=== PATIENT | male | born 1960 | race Caucasian/White ===

== ENCOUNTER 2016-06-05 14:42 | Inpatient (IN) | payer MEDICAID ==
[~2016-06-05] VITALS: Ht 182.9 cm; Wt 98.5 kg
[~2016-06-05 14:42] MED LIST: ATOR80TA PO; BENA20TA4 PO; GABA-339 PO; GEMF600T3 PO; HYDROCODON-ACETAMINOPHN PO; METO-158 PO; NAP500T PO
[2016-06-05] MEDS ORDERED: SODIUM CHLORIDE 0.9% 1,000 ML IV ONE ×3 (15:31→18:15)
[2016-06-05] MEDS ORDERED: MORPHINE SULFATE 4 MG/ML SYRG IV ONE (15:45)
[2016-06-05] MEDS ORDERED: ONDANSETRON HCL 4 MG/2 ML VIAL IV ONE (15:45)
[2016-06-05] MEDS ORDERED: DEXTROSE (50%) 50ML SYRG IV ONE (15:45)
[2016-06-05 15:58] LABS: DEFINITIVE VIEW TRANSMISSION; Hemoglobin 14.6 g/dL (13.5-17.5); Mean Corpuscular Hemoglobin 28.4 pg (28.0-32.0); SUSPECT VIEW TRANSMISSION
[2016-06-05 16:03] LABS: Hematocrit 47.1 % (41.0-53.0); Mean Corpuscular Hgb Conc. 30.9 g/dL (32.0-36.0); Mean Corpuscular Volume 91.8 fL (80.0-100.0); Platelet Count (auto) 323 10^3/uL (140-450); Red Cell Distribution Width 15.8 % (11.6-16.0); White Blood Cell 18.3 10^3/uL (4.4-10.8)
[2016-06-05 16:18] LABS: Albumin 3.1 g/dL (3.4-5.0); Anion Gap 22 (5-15); Blood Urea Nitrogen 49 mg/dL (7-18); Calcium 8.1 mg/dL (8.5-10.1); Carbon Dioxide 10 mmol/L (21-32); Chloride 104 mmol/L (98-107); Sodium 136 mmol/L (136-145)
[2016-06-05 16:19] LABS: Partial Thromboplastin Time 35.2 sec (22.64-33.71)
[2016-06-05 16:21] LABS: Alkaline Phosphatase 61 U/L (45-117); Aspartate Aminotransferase 68 U/L (15-37); BUN/Creatinine Ratio 13.4; Bilirubin, Total < 0.1 mg/dL (0.2-1.0); GFR African American 22 mL/min; GFR Non-African American 18 mL/min; Total Protein 7.1 g/dL (6.4-8.2)
[2016-06-05 16:25] LABS: Metamyelocytes % 0; Myelocytes % 0; Promyelocytes % 0; Reactive Lymphocytes 0
[2016-06-05 16:26] LABS: INR 1.39 (0.9-1.15); Prothrombin Time 14.3 sec (9.37-12.3)
[2016-06-05 16:28] LABS: Glucose 31 mg/dL (74-106)
[2016-06-05 16:41] LABS: B-Type Natriuretic Peptide 150.91 pg/mL (0-100); Temperature: 23.5 C (20.0-25.0)
[2016-06-05] MEDS ORDERED: SODIUM CHLORIDE 0.9% 250 ML IV ONE (17:31)
[2016-06-05] MEDS ORDERED: PIPERACILLIN-TAZOB 3.375GM 100 ML IV ONE ×2 (17:45→20:30)
[2016-06-05 17:51] LABS: Amylase 47 U/L (25-115)
[2016-06-05] MEDS ORDERED: ASPirin 325 MG TAB PO ONE (18:00)
[2016-06-05] MEDS ORDERED: ENOXAPARIN SOD 100 MG/1 ML SYRINGE SC ONE (18:00)
[2016-06-05] MEDS ORDERED: DEXTROSE (50%) 50ML SYRG IV PRN (18:15)
[2016-06-05] MEDS ORDERED: ACETAMINOPHEN 500 MG TAB PO PRN (18:15)
[2016-06-05] MEDS ORDERED: MORPHINE SULF INJ 2 MG/ML SYRINGE 1ML IV PRN (18:15)
[2016-06-05] MEDS ORDERED: TEMAZEPAM 15 MG CAP PO PRN (18:15)
[2016-06-05] MEDS ORDERED: FUROSEMIDE 20 MG/2 ML VIAL IV ONE (18:15)
[2016-06-05] MEDS ORDERED: PROMETHAZINE HCL 25 MG/ML 1ML IV PRN (18:15)
[2016-06-05] MEDS ORDERED: LORazepam 0.5 MG TAB PO PRN (18:15)
[2016-06-05] MEDS ORDERED: LACTULOSE 20Gm/30ML SOLN PO PRN (18:15)
[2016-06-05] MEDS ORDERED: cefTRIAXone 1GM/50ML D5W 50 ML IV ONE (18:15)
[2016-06-05] MEDS ORDERED: NITROGLYCERIN 0.4 MG SL TAB SL PRN (18:15)
[2016-06-05 19:05] LABS: Giant Platelets Few; Platelet Estimate Adequate
[2016-06-05 19:18] LABS: Lactic Acid 6.6 mmol/L (0.4-2.0)
[2016-06-05] MEDS: D5W/SOD CHLO 0.9% 1,000 ML IV SCH (19:34)
[2016-06-05 19:49] LABS: REFLEX LACTIC ACID YES OR NO YES
[2016-06-05] MEDS: ACCU-CHEK COMFORT CURVE STRIP VI SCH ×2 (20:08→22:09)
[2016-06-05] MEDS ORDERED: DILTIAZEM HCL 25 MG/5 ML VIAL IV ONE ×2 (21:15→23:53)
[2016-06-05 21:24] LABS: Urine Bilirubin Negative (Negative); Urine Color Yellow (Yellow); Urine Glucose Normal (Normal); Urine Ketone Negative (Negative); Urine Mucus FEW (None Seen); Urine Nitrite Negative (Negative); Urine RBC 4 /hpf (0 - 3); Urine Urobilinogen Normal (Negative)
[2016-06-05 21:26] LABS: Urine Blood 1+ /uL (Negative)
[2016-06-05] MEDS ORDERED: diphenhdrAMINE HCL 50 MG/1 ML VL IV ONE (22:00)
[2016-06-05 22:05] LABS: Lactic Acid 4.8 mmol/L (0.4-2.0)
[2016-06-05 22:38] LABS: REFLEX LACTIC ACID YES OR NO YES
[2016-06-05 22:40] VITALS: BP 125/96
[2016-06-05] MEDS ORDERED: cloNIDine HCL 0.1 MG TAB ONE (23:10)
[2016-06-05] MEDS ORDERED: ACETAMINOPHEN 650 mg PER 20 mL UD ONE (23:10)
[2016-06-05] MEDS ORDERED: ACETAMINOPHEN 650 mg PER 20 mL UD PO PRN (23:15)
[2016-06-05] MEDS ORDERED: ACETAMINOPHEN 650 MG RECT SUPP PR ONE (23:18)
[2016-06-05 23:40] VITALS: BP 150/86
[2016-06-05] MEDS ORDERED: SODIUM BICARBONATE 8.4% INJ 50ML SYRINGE ONE (23:52)
[2016-06-06] VITALS (70 sets, daily range): BP systolic 94–155; BP diastolic 57–106
[2016-06-06] MEDS ORDERED: ACETAMINOPHEN 650 MG RECT SUPP PR PRN ×2 (00:15)
[2016-06-06] MEDS ORDERED: SODIUM BICARBONATE 8.4 % INJ 50ML VIAL IV ONE (00:15)
[2016-06-06] MEDS ORDERED: DILTIAZEM HCL 25 MG/5 ML VIAL IV ONE (00:15)
[2016-06-06] MEDS: MORPHINE SULF INJ 2 MG/ML SYRINGE 1ML IV PRN ×5 (01:37→22:16)
[2016-06-06] MEDS: ACCU-CHEK COMFORT CURVE STRIP VI SCH ×12 (02:04→22:15)
[2016-06-06] MEDS: D5W/SOD CHLO 0.9% 1,000 ML IV SCH (05:45)
[2016-06-06] MEDS: PIPERACILLIN-TAZOB 2.25GM 50 ML IV SCH ×2 (05:48)
[2016-06-06 07:27] LABS: DEFINITIVE VIEW TRANSMISSION; Hematocrit 41.8 % (41.0-53.0); Hemoglobin 13.4 g/dL (13.5-17.5); Mean Corpuscular Hemoglobin 28.8 pg (28.0-32.0); Mean Corpuscular Hgb Conc. 32.1 g/dL (32.0-36.0); Mean Corpuscular Volume 89.8 fL (80.0-100.0); Mean Platelet Volume 10.2 fL (7.4-10.4); Platelet Count (auto) 213 10^3/uL (140-450); Red Cell Distribution Width 15.6 % (11.6-16.0); SUSPECT VIEW TRANSMISSION
[2016-06-06 07:42] LABS: White Blood Cell 38.5 10^3/uL (4.4-10.8)
[2016-06-06 07:43] LABS: Partial Thromboplastin Time 46.2 sec (22.64-33.71)
[2016-06-06 07:47] LABS: Metamyelocytes % 0; Myelocytes % 0; Promyelocytes % 0; Reactive Lymphocytes 0
[2016-06-06 08:02] LABS: Albumin 2.6 g/dL (3.4-5.0); BUN/Creatinine Ratio 23.4; Calcium 6.9 mg/dL (8.5-10.1); Potassium 3.5 mmol/L (3.5-5.1)
[2016-06-06 08:04] LABS: Bilirubin, Total 0.6 mg/dL (0.2-1.0); Total Protein 6.2 g/dL (6.4-8.2)
[2016-06-06 08:10] LABS: INR 1.69 (0.9-1.15); Prothrombin Time 17.4 sec (9.37-12.3)
[2016-06-06] MEDS ORDERED: cefTRIAXone 1GM/50ML D5W 50 ML IV SCH (09:00)
[2016-06-06] MEDS ORDERED: PANTOPRAZOLE SODIUM 40 MG/10 ML VIAL IV ONE (10:00)
[2016-06-06] MEDS: PANTOPRAZOLE 40 MG TAB PO SCH (10:00)
[2016-06-06] MEDS: SOD CHL 0.45% WITH 20MEQ KCL 1,000 ML IV SCH ×2 (10:22→20:15)
[2016-06-06] MEDS: ENOXAPARIN SOD 30 MG/0.3 ML SYRINGE SC SCH (10:23)
[2016-06-06] MEDS: ALBUMIN 25% 100 ML IV SCH ×2 (10:30→18:41)
[2016-06-06] MEDS: ASPirin 81 mg TAB PO SCH (10:40)
[2016-06-06 10:46] LABS: Urine Mucus FEW (None Seen); Urine RBC 1 /hpf (0 - 3); Urine Squamous Epithelial Cell FEW /hpf (<5)
[2016-06-06] MEDS ORDERED: LEVOFLOXACIN 500MG 100 ML IV ONE (11:15)
[2016-06-06] MEDS ORDERED: VANCOMYCIN PER PHARMACY 0 MG IV SCH (11:15)
[2016-06-06] MEDS ORDERED: VANCOMYCIN 1GM/250ML D5W 250 ML IV ONE (11:15)
[2016-06-06 11:45] LABS: Giant Platelets Few; Platelet Estimate Adequate
[2016-06-06] MEDS ORDERED: PHYTONADIONE ORAL Susp 10 mg/10ml PO ONE (11:45)
[2016-06-06] MEDS: METOPROLOL TARTRATE 25 MG TAB PO SCH ×2 (12:18→21:04)
[2016-06-06] MEDS ORDERED: VANCOMYCIN 1,500 MG in D5W 5% 250 ML IV SCH (13:00)
[2016-06-06 18:43] LABS: DEFINITIVE VIEW TRANSMISSION; Hemoglobin 13.8 g/dL (13.5-17.5); Mean Corpuscular Hgb Conc. 32.1 g/dL (32.0-36.0); Mean Corpuscular Volume 90.3 fL (80.0-100.0); Mean Platelet Volume 10.3 fL (7.4-10.4); Platelet Count (auto) 194 10^3/uL (140-450); Red Cell Distribution Width 16.1 % (11.6-16.0); SUSPECT VIEW TRANSMISSION
[2016-06-06 18:53] LABS: Partial Thromboplastin Time 41.7 sec (22.64-33.71)
[2016-06-06 19:03] LABS: INR 1.44 (0.9-1.15); Prothrombin Time 14.8 sec (9.37-12.3)
[2016-06-06 19:04] LABS: Albumin 2.8 g/dL (3.4-5.0); BUN/Creatinine Ratio 32.3; Calcium 7.2 mg/dL (8.5-10.1); Magnesium 1.9 mg/dL (1.6-2.6); Potassium 4.2 mmol/L (3.5-5.1)
[2016-06-06 19:14] LABS: Bilirubin, Total 0.6 mg/dL (0.2-1.0); Total Protein 6.5 g/dL (6.4-8.2)
[2016-06-06 20:03] LABS: Bilirubin, Direct 0.3 mg/dL (0-0.2)
[2016-06-06 20:08] LABS: White Blood Cell 39.2 10^3/uL (4.4-10.8)
[2016-06-06 20:09] LABS: Myelocytes % 0; Promyelocytes % 0; Reactive Lymphocytes 0
[2016-06-06 20:46] LABS: Metamyelocytes % 2
[2016-06-06 20:49] LABS: Burr Cells MODERATE; Giant Platelets Few; Platelet Estimate Adequate
[2016-06-06] MEDS: HYDROcodone-ACET 5/325MG TAB PO PRN (21:03)
[2016-06-07] VITALS (18 sets, daily range): BP systolic 108–157; BP diastolic 65–108
[2016-06-07] MEDS: ACCU-CHEK COMFORT CURVE STRIP VI SCH ×9 (00:38→22:00)
[2016-06-07] MEDS: ACETAMINOPHEN 500 MG TAB PO PRN (02:14)
[2016-06-07] MEDS: ALBUMIN 25% 100 ML IV SCH ×2 (02:15→11:00)
[2016-06-07] MEDS: SOD CHL 0.45% WITH 20MEQ KCL 1,000 ML IV SCH ×3 (06:26→22:39)
[2016-06-07 06:52] LABS: Partial Thromboplastin Time 36.5 sec (22.64-33.71)
[2016-06-07 06:59] LABS: Albumin 3.2 g/dL (3.4-5.0); BUN/Creatinine Ratio 41.9; Calcium 7.5 mg/dL (8.5-10.1); Potassium 3.8 mmol/L (3.5-5.1)
[2016-06-07 07:02] LABS: Bilirubin, Total 0.7 mg/dL (0.2-1.0); Phosphorus 1.3 mg/dL (2.5-4.90); Total Protein 6.6 g/dL (6.4-8.2)
[2016-06-07 07:06] LABS: DEFINITIVE VIEW TRANSMISSION; Hematocrit 38.8 % (41.0-53.0); Hemoglobin 12.5 g/dL (13.5-17.5); Mean Corpuscular Hemoglobin 28.9 pg (28.0-32.0); Mean Corpuscular Hgb Conc. 32.1 g/dL (32.0-36.0); Mean Corpuscular Volume 90.1 fL (80.0-100.0); Mean Platelet Volume 11.5 fL (7.4-10.4); Platelet Count (auto) 153 10^3/uL (140-450); Red Cell Distribution Width 15.7 % (11.6-16.0); SUSPECT VIEW TRANSMISSION
[2016-06-07 07:11] LABS: Metamyelocytes % 0; Myelocytes % 0; Promyelocytes % 0; Reactive Lymphocytes 0; White Blood Cell 36.1 10^3/uL (4.4-10.8)
[2016-06-07 07:23] LABS: INR 1.22 (0.9-1.15); Prothrombin Time 12.6 sec (9.37-12.3)
[2016-06-07 07:32] LABS: Bilirubin, Direct 0.3 mg/dL (0-0.2)
[2016-06-07] MEDS: HYDROcodone-ACET 5/325MG TAB PO PRN ×2 (08:40→18:07)
[2016-06-07 09:52] LABS: Burr Cells FEW; Giant Platelets Few; Platelet Estimate Adequate
[2016-06-07] MEDS: ENOXAPARIN SOD 30 MG/0.3 ML SYRINGE SC SCH (10:58)
[2016-06-07] MEDS: ASPirin 81 mg TAB PO SCH (10:58)
[2016-06-07] MEDS: PANTOPRAZOLE 40 MG TAB PO SCH (10:58)
[2016-06-07] MEDS: LEVOFLOXACIN 250MG 50 ML IV SCH (10:59)
[2016-06-07] MEDS: METOPROLOL TARTRATE 25 MG TAB PO SCH ×2 (10:59→22:35)
[2016-06-07] MEDS ORDERED: POTASSIUM PHOSPHATE 44 MEQ in SODIUM CHL 0.9% 250 ML IV ONE (11:15)
[2016-06-07] MEDS: MORPHINE SULF INJ 2 MG/ML SYRINGE 1ML IV PRN ×3 (11:19→21:06)
[2016-06-07] MEDS ORDERED: PHYTONADIONE ORAL Susp 10 mg/10ml PO ONE (12:15)
[2016-06-07] MEDS ORDERED: METOPROLOL TARTRATE 25 MG TAB PO ONE (12:15)
[2016-06-07] MEDS ORDERED: DEXTROSE (50%) 50ML SYRG IV PRN (13:45)
[2016-06-07] MEDS: VANCOMYCIN 1,250 MG in D5W 5% 250 ML IV SCH ×2 (13:57→22:35)
[2016-06-07] MEDS: InsuLIN REG 1unit/0.01ml Soln (100units/ml) SC SCH ×2 (17:00→22:00)
[2016-06-07 17:59] LABS: Partial Thromboplastin Time 35.3 sec (22.64-33.71); Prothrombin Time 11.9 sec (9.37-12.3)
[2016-06-07 18:07] LABS: INR 1.16 (0.9-1.15)
[2016-06-07 18:29] LABS: DEFINITIVE VIEW TRANSMISSION; Hemoglobin 12.4 g/dL (13.5-17.5); SUSPECT VIEW TRANSMISSION
[2016-06-07 18:43] LABS: Hematocrit 39.1 % (41.0-53.0); Mean Corpuscular Hgb Conc. 31.6 g/dL (32.0-36.0); Mean Corpuscular Volume 91.8 fL (80.0-100.0); Red Cell Distribution Width 16.2 % (11.6-16.0)
[2016-06-07 18:46] LABS: Albumin 3.1 g/dL (3.4-5.0); Calcium 7.4 mg/dL (8.5-10.1); Potassium 4.2 mmol/L (3.5-5.1); White Blood Cell 37.6 10^3/uL (4.4-10.8)
[2016-06-07 18:48] LABS: Metamyelocytes % 0; Myelocytes % 0; Promyelocytes % 0; Reactive Lymphocytes 0
[2016-06-07 18:50] LABS: BUN/Creatinine Ratio 40.7; Magnesium 2.4 mg/dL (1.6-2.6)
[2016-06-07 18:59] LABS: Bilirubin, Total 0.6 mg/dL (0.2-1.0); Phosphorus 1.6 mg/dL (2.5-4.90); Total Protein 6.7 g/dL (6.4-8.2)
[2016-06-07 19:03] LABS: Bilirubin, Direct 0.3 mg/dL (0-0.2)
[2016-06-07 19:31] LABS: Giant Platelets Few; Large Platelets FEW; Platelet Estimate Decreased
[2016-06-07 19:32] LABS: Burr Cells MODERATE
[2016-06-07 19:33] LABS: Mean Platelet Volume 12.4 fL (7.4-10.4); Platelet Count (auto) 139 10^3/uL (140-450)
[2016-06-08] VITALS: BP 148/105
[2016-06-08] MEDS: MORPHINE SULF INJ 2 MG/ML SYRINGE 1ML IV PRN ×6 (01:53→23:13)
[2016-06-08] MEDS: HYDROcodone-ACET 5/325MG TAB PO PRN ×2 (03:32→19:41)
[2016-06-08 04:00] VITALS: BP 155/93
[2016-06-08 05:10] LABS: DEFINITIVE VIEW TRANSMISSION; Hematocrit 40.1 % (41.0-53.0); Hemoglobin 12.6 g/dL (13.5-17.5); Mean Corpuscular Hemoglobin 28.5 pg (28.0-32.0); Mean Corpuscular Hgb Conc. 31.5 g/dL (32.0-36.0); Mean Corpuscular Volume 90.5 fL (80.0-100.0); Mean Platelet Volume 12.1 fL (7.4-10.4); Platelet Count (auto) 145 10^3/uL (140-450); Red Cell Distribution Width 15.9 % (11.6-16.0); SUSPECT VIEW TRANSMISSION
[2016-06-08 05:29] LABS: White Blood Cell 44.1 10^3/uL (4.4-10.8)
[2016-06-08 05:30] LABS: Metamyelocytes % 0; Myelocytes % 0; Promyelocytes % 0; Reactive Lymphocytes 0
[2016-06-08 05:32] LABS: Albumin 3.1 g/dL (3.4-5.0); BUN/Creatinine Ratio 42.1; Bilirubin, Total 0.9 mg/dL (0.2-1.0); Calcium 7.9 mg/dL (8.5-10.1); Magnesium 2.5 mg/dL (1.6-2.6); Potassium 3.6 mmol/L (3.5-5.1); Total Protein 6.9 g/dL (6.4-8.2)
[2016-06-08 05:39] LABS: Bilirubin, Direct 0.4 mg/dL (0-0.2)
[2016-06-08 05:50] LABS: INR 1.09 (0.9-1.15); Partial Thromboplastin Time 30.8 sec (22.64-33.71); Prothrombin Time 11.2 sec (9.37-12.3)
[2016-06-08 05:53] LABS: Burr Cells FEW; Hypersegmented Neutrophils Present; Platelet Estimate Adequate
[2016-06-08] MEDS: VANCOMYCIN 1,250 MG in D5W 5% 250 ML IV SCH ×3 (06:19→23:01)
[2016-06-08] MEDS: InsuLIN REG 1unit/0.01ml Soln (100units/ml) SC SCH ×4 (06:26→22:00)
[2016-06-08] MEDS: ACCU-CHEK COMFORT CURVE STRIP VI SCH ×4 (06:26→22:00)
[2016-06-08 08:00] VITALS: BP 142/94
[2016-06-08] MEDS: METOPROLOL TARTRATE 25 MG TAB PO SCH ×2 (10:11→23:02)
[2016-06-08] MEDS: PANTOPRAZOLE 40 MG TAB PO SCH (10:11)
[2016-06-08] MEDS: ACETAMINOPHEN 500 MG TAB PO PRN (10:12)
[2016-06-08] MEDS: ENOXAPARIN SOD 30 MG/0.3 ML SYRINGE SC SCH (10:12)
[2016-06-08] MEDS: ASPirin 81 mg TAB PO SCH (10:12)
[2016-06-08] MEDS: LEVOFLOXACIN 250MG 50 ML IV SCH (10:12)
[2016-06-08 11:56] VITALS: BP 138/75
[2016-06-08] MEDS: SOD CHL 0.45% WITH 20MEQ KCL 1,000 ML IV SCH ×2 (12:00→20:53)
[2016-06-08] MEDS ORDERED: IOHEXOL 350 MG/ML 100ML IJ ONE (13:38)
[2016-06-08] MEDS ORDERED: EPINEPHrine HCL 1 MG/10 ML SYRG ONE (14:03)
[2016-06-08 14:13] LABS: B-Type Natriuretic Peptide 516.12 pg/mL (0-100); Temperature: 22.5 C (20.0-25.0)
[2016-06-08 16:03] VITALS: BP 135/84
[2016-06-08 19:05] LABS: DEFINITIVE VIEW TRANSMISSION; Hemoglobin 13.2 g/dL (13.5-17.5); Mean Corpuscular Hemoglobin 29.1 pg (28.0-32.0); Mean Corpuscular Hgb Conc. 32.3 g/dL (32.0-36.0); Mean Platelet Volume 13.1 fL (7.4-10.4); Platelet Count (auto) 137 10^3/uL (140-450); Red Cell Distribution Width 15.9 % (11.6-16.0); SUSPECT VIEW TRANSMISSION
[2016-06-08 19:17] LABS: BUN/Creatinine Ratio 41.8; Bilirubin, Total 1.1 mg/dL (0.2-1.0); Calcium 8.3 mg/dL (8.5-10.1); Magnesium 2.5 mg/dL (1.6-2.6); Potassium 3.6 mmol/L (3.5-5.1); Total Protein 7.1 g/dL (6.4-8.2)
[2016-06-08 19:20] LABS: INR 1.1 (0.9-1.15); Partial Thromboplastin Time 30.6 sec (22.64-33.71); Prothrombin Time 11.3 sec (9.37-12.3)
[2016-06-08 19:27] LABS: Bilirubin, Direct 0.5 mg/dL (0-0.2)
[2016-06-08 19:28] LABS: White Blood Cell 46.1 10^3/uL (4.4-10.8)
[2016-06-08 19:29] LABS: Promyelocytes % 0; Reactive Lymphocytes 0
[2016-06-08 19:52] LABS: Urine Bilirubin Negative (Negative); Urine Blood TRACE /uL (Negative); Urine Color Yellow (Yellow); Urine Glucose Normal (Normal); Urine Ketone TRACE (Negative); Urine Nitrite Negative (Negative); Urine RBC 1 /hpf (0 - 3); Urine Squamous Epithelial Cell FEW /hpf (<5); Urine Urobilinogen Normal (Negative); Urine pH 6.5 (5.0-8.0)
[2016-06-08 20:00] VITALS: BP 163/100
[2016-06-08 20:03] LABS: Burr Cells FEW; Giant Platelets Few; Hypersegmented Neutrophils Present; Metamyelocytes % 1; Myelocytes % 1; Platelet Estimate Decreased
[2016-06-09] VITALS (7 sets, daily range): BP systolic 122–167; BP diastolic 83–112
[2016-06-09] MEDS: HYDROcodone-ACET 5/325MG TAB PO PRN ×3 (02:03→21:39)
[2016-06-09] MEDS: cloNIDine HCL 0.1 MG TAB PO PRN ×2 (02:13→11:38)
[2016-06-09 05:12] LABS: INR 1.12 (0.9-1.15); Partial Thromboplastin Time 29.4 sec (22.64-33.71); Prothrombin Time 11.5 sec (9.37-12.3)
[2016-06-09 05:13] LABS: DEFINITIVE VIEW TRANSMISSION; Hematocrit 38.4 % (41.0-53.0); Hemoglobin 12.3 g/dL (13.5-17.5); Mean Corpuscular Hemoglobin 28.7 pg (28.0-32.0); Mean Corpuscular Hgb Conc. 32.1 g/dL (32.0-36.0); Mean Corpuscular Volume 89.5 fL (80.0-100.0); Mean Platelet Volume 12.6 fL (7.4-10.4); Platelet Count (auto) 151 10^3/uL (140-450); Red Cell Distribution Width 15.7 % (11.6-16.0); SUSPECT VIEW TRANSMISSION
[2016-06-09 05:38] LABS: White Blood Cell 40.4 10^3/uL (4.4-10.8)
[2016-06-09 05:39] LABS: Promyelocytes % 0; Reactive Lymphocytes 0
[2016-06-09 06:12] LABS: Hypersegmented Neutrophils Present; Metamyelocytes % 2; Myelocytes % 2; Platelet Estimate Adequate
[2016-06-09 06:13] LABS: RBC Morphology Normal
[2016-06-09 06:20] LABS: Albumin 2.7 g/dL (3.4-5.0); BUN/Creatinine Ratio 33.3; Bilirubin, Total 1.3 mg/dL (0.2-1.0); Calcium 8.2 mg/dL (8.5-10.1); Magnesium 2.2 mg/dL (1.6-2.6); Potassium 3.8 mmol/L (3.5-5.1); Total Protein 6.7 g/dL (6.4-8.2)
[2016-06-09 06:23] LABS: Bilirubin, Direct 0.6 mg/dL (0-0.2)
[2016-06-09] MEDS: VANCOMYCIN 1,250 MG in D5W 5% 250 ML IV SCH ×3 (06:30→21:07)
[2016-06-09] MEDS: ACCU-CHEK COMFORT CURVE STRIP VI SCH ×4 (06:31→21:45)
[2016-06-09] MEDS: InsuLIN REG 1unit/0.01ml Soln (100units/ml) SC SCH ×4 (06:31→21:45)
[2016-06-09] MEDS: MORPHINE SULF INJ 2 MG/ML SYRINGE 1ML IV PRN ×3 (06:31→18:05)
[2016-06-09] MEDS: PANTOPRAZOLE 40 MG TAB PO SCH (10:16)
[2016-06-09] MEDS: ASPirin 81 mg TAB PO SCH (10:16)
[2016-06-09] MEDS: LEVOFLOXACIN 250MG 50 ML IV SCH (10:16)
[2016-06-09] MEDS: ENOXAPARIN SOD 30 MG/0.3 ML SYRINGE SC SCH (10:16)
[2016-06-09] MEDS: METOPROLOL TARTRATE 25 MG TAB PO SCH ×2 (10:16→21:07)
[2016-06-10] VITALS: BP 146/94
[2016-06-10] MEDS: MORPHINE SULF INJ 2 MG/ML SYRINGE 1ML IV PRN ×3 (02:40→17:12)
[2016-06-10 04:00] VITALS: BP 196/74
[2016-06-10] MEDS: ACETAMINOPHEN 500 MG TAB PO PRN (04:47)
[2016-06-10] MEDS: cloNIDine HCL 0.1 MG TAB PO PRN (04:51)
[2016-06-10] MEDS: VANCOMYCIN 1,250 MG in D5W 5% 250 ML IV SCH ×2 (06:25→13:29)
[2016-06-10] MEDS: ALBUTEROL SULF 2.5 MG/0.5ML(0.5%) NEB SOLN NEB PRN ×2 (06:27→11:59)
[2016-06-10] MEDS: IPRATROPIUM BROM 0.5 MG/2.5ML INH SOL NEB PRN ×2 (06:28→11:59)
[2016-06-10] MEDS: ACCU-CHEK COMFORT CURVE STRIP VI SCH ×2 (06:31→11:42)
[2016-06-10] MEDS: InsuLIN REG 1unit/0.01ml Soln (100units/ml) SC SCH ×2 (06:32→12:07)
[2016-06-10 06:42] LABS: DEFINITIVE VIEW TRANSMISSION; Hematocrit 36.9 % (41.0-53.0); Hemoglobin 11.7 g/dL (13.5-17.5); Mean Corpuscular Hemoglobin 28.5 pg (28.0-32.0); Mean Corpuscular Hgb Conc. 31.8 g/dL (32.0-36.0); Mean Corpuscular Volume 89.8 fL (80.0-100.0); Mean Platelet Volume 13.4 fL (7.4-10.4); Platelet Count (auto) 201 10^3/uL (140-450); Red Cell Distribution Width 15.3 % (11.6-16.0); SUSPECT VIEW TRANSMISSION
[2016-06-10 07:05] LABS: Vitamin D 25-Hydroxy 11 ng/mL (.); Vitamin D-2 25-Hydroxy <1.0 ng/mL (.)
[2016-06-10 07:20] LABS: White Blood Cell 37.6 10^3/uL (4.4-10.8)
[2016-06-10 07:21] LABS: Promyelocytes % 0; Reactive Lymphocytes 0
[2016-06-10 07:43] LABS: INR 1.14 (0.9-1.15); Partial Thromboplastin Time 29.6 sec (22.64-33.71); Prothrombin Time 11.7 sec (9.37-12.3)
[2016-06-10 08:00] VITALS: BP 150/92
[2016-06-10 08:22] LABS: Metamyelocytes % 3; Myelocytes % 2
[2016-06-10 08:23] LABS: Hypersegmented Neutrophils Present; Platelet Estimate Adequate
[2016-06-10 08:30] LABS: BUN/Creatinine Ratio 28.2; Calcium 8.1 mg/dL (8.5-10.1)
[2016-06-10] MEDS: HYDROcodone-ACET 5/325MG TAB PO PRN ×2 (08:33→15:36)
[2016-06-10 08:51] LABS: Potassium 2.9 mmol/L (3.5-5.1)
[2016-06-10] MEDS: METOPROLOL TARTRATE 25 MG TAB PO SCH (09:40)
[2016-06-10] MEDS: LEVOFLOXACIN 250MG 50 ML IV SCH (09:40)
[2016-06-10] MEDS: ASPirin 81 mg TAB PO SCH (09:40)
[2016-06-10] MEDS: ENOXAPARIN SOD 30 MG/0.3 ML SYRINGE SC SCH (09:41)
[2016-06-10] MEDS: PANTOPRAZOLE 40 MG TAB PO SCH (09:41)
[2016-06-10] MEDS ORDERED: POTASSIUM CHL 10% (20 MEQ/15ML) ORAL SOLN PO ONE (11:30)
[2016-06-10] MEDS: POTASSIUM CHL 20MEQ/100ML 100 ML IV SCH ×2 (11:51→13:13)
[2016-06-10 12:00] VITALS: BP 153/92
[2016-06-10] MEDS ORDERED: LEVOFLOXACIN 250 MG TAB PO ONE (15:30)
[2016-06-10 16:00] VITALS: BP 138/85
[2016-06-10 16:38] VITALS: BP 138/85
== END 2016-06-10 17:30 | DRG 720 ==
LOC: ER 14:45 → TELE 14:46 → ICU WEST 22:50 → DOU IN ICU 06-07 16:21
PROVIDERS: ADMIT Internal Medicine; ATTEND Internal Medicine
DX: A40.3 Sepsis due to Streptococcus pneumoniae (principal); N17.9 Acute kidney failure, unspecified; D68.9 Coagulation defect, unspecified; G92 Toxic encephalopathy; J15.4 Pneumonia due to other streptococci; L53.0 Toxic erythema; E11.22 Type 2 diabetes mellitus with diabetic chronic kidney disease; E11.649 Type 2 diabetes mellitus with hypoglycemia without coma; E83.39 Other disorders of phosphorus metabolism; I12.9 Hypertensive chronic kidney disease with stage 1 through stage 4 chronic kidney disease, or unspecified chronic kidney disease; N12 Tubulo-interstitial nephritis, not specified as acute or chronic; R53.81 Other malaise; E78.5 Hyperlipidemia, unspecified; D72.823 Leukemoid reaction; M19.90 Unspecified osteoarthritis, unspecified site; R09.02 Hypoxemia; N18.9 Chronic kidney disease, unspecified; R29.700 NIHSS score 0; E86.0 Dehydration; F41.9 Anxiety disorder, unspecified; G89.29 Other chronic pain; K57.90 Diverticulosis of intestine, part unspecified, without perforation or abscess without bleeding; K76.9 Liver disease, unspecified; M47.9 Spondylosis, unspecified; M54.5 Low back pain; T36.0X5A Adverse effect of penicillins, initial encounter; Y92.238 Other place in hospital as the place of occurrence of the external cause; Z83.3 Family history of diabetes mellitus; Z72.0 Tobacco use; Z84.89 Family history of other specified conditions; Z80.42 Family history of malignant neoplasm of prostate; Z79.899 Other long term (current) drug therapy; Z88.8 Allergy status to other drugs, medicaments and biological substances; Z88.1 Allergy status to other antibiotic agents; Z98.890 Other specified postprocedural states; Z90.81 Acquired absence of spleen
CPT/HCPCS: 36415; 36600; 51702; 70450; 71010; 71275; 74176; 76705; 76775; 80048; 80053; 80061; 80074; 80076; 80202; 81001; 81015; 82140; 82150; 82306; 82550; 82570; 82805; 82962; 83036; 83605; 83690; 83735; 83880; 83970; 84100; 84300; 84484; 85007; 85027; 85610; 85652; 85730; 86141; 86703; 87040; 87077; 87081; 87086; 87186; 93005; 93306; 93970; 94640; 96361; 96365; 96366; 96372; 96375; 97001; C9113; G0434; J0696; J1815; J1956; J2405; J2543; J3480; J7042; J7060

== ENCOUNTER 2017-08-29 08:30 | Emergency (ER) | payer OTHER, MEDICAID ==
[~2017-08-29] VITALS: Ht 182.9 cm; Wt 81.6 kg
[~2017-08-29 08:30] MED LIST changes: -ATOR80TA PO; +BENA20TA14 PO; -BENA20TA4 PO; +CEPH-37 PO; -GABA-339 PO; -GEMF600T3 PO; +LEVE750T3; -NAP500T PO; +SACC250C PO; +SULF-92 PO
[2017-08-29] MEDS ORDERED: SODIUM CHLORIDE 0.9% 1,000 ML IV ONE (09:46)
[2017-08-29] MEDS ORDERED: cefTRIAXone 1GM/10ml IVPUSH 10 ML IV ONE (10:00)
[2017-08-29 10:30] LABS: Basophils # (auto) 0.2 uL; Basophils % (auto) 1.2 % (0.0-2.0); Eosinophils # (auto) 0.4 uL; Eosinophils % (auto) 2.7 % (0.0-7.0); Hematocrit 49.5 % (41.0-53.0); Hemoglobin 16.3 g/dL (13.5-17.5); Lymphocytes # (auto) 6.6 uL; Lymphocytes % (auto) 39.2 % (10.0-50.0); Mean Corpuscular Hgb Conc. 32.9 g/dL (32.0-36.0); Mean Corpuscular Volume 90.9 fL (80.0-100.0); Monocytes # (auto) 1.6 uL; Monocytes % (auto) 9.6 % (0.0-12.0); Neutrophils % (auto) 47.3 % (37.0-80.0); Platelet Count (auto) 653 10^3/uL (140-450); Red Blood Cells 5.45 10^6/uL (4.5-5.90); Red Cell Distribution Width 14.6 % (11.8-14.3); White Blood Cell 16.9 10^3/uL (4.4-10.8)
[2017-08-29 10:49] LABS: INR 1.05 (0.9-1.15); Partial Thromboplastin Time 27.7 sec (22.64-33.71); Prothrombin Time 11.4 sec (9.37-12.3)
[2017-08-29 11:08] LABS: Albumin 3.8 g/dL (3.4-5.0); BUN/Creatinine Ratio 16.2; Bilirubin, Total 0.3 mg/dL (0.2-1.0); Calcium 9.1 mg/dL (8.5-10.1); Potassium 3.8 mmol/L (3.5-5.1); Total Protein 8.4 g/dL (6.4-8.2)
[2017-08-29 12:55] VITALS: BP 121/76
== END 2017-08-29 14:07 | disposition home or self-care (01) ==
LOC: ER 08:30
DX: Z48.815 Encounter for surgical aftercare following surgery on the digestive system (principal); E11.9 Type 2 diabetes mellitus without complications; I10 Essential (primary) hypertension; Z90.81 Acquired absence of spleen; Z79.899 Other long term (current) drug therapy
CPT/HCPCS: 36415; 71046; 74176; 80053; 83605; 85025; 85610; 85730; 87040; 87205; 96361; 96374; 99285; J7030

== ENCOUNTER 2019-02-14 09:53 | Emergency (ER) | payer OTHER, MEDICAID ==
[~2019-02-14] VITALS: Ht 182.9 cm; Wt 90.7 kg
[2019-02-14 10:41] LABS: Eosinophils # (auto) 0 uL; Mean Corpuscular Hgb Conc. 33.5 g/dL (32.0-36.0)
[2019-02-14 10:43] LABS: Basophils # (auto) 0.2 uL; Basophils % (auto) 1.3 % (0.0-2.0); Eosinophils % (auto) 0.2 % (0.0-7.0); Hematocrit 50.7 % (41.0-53.0); Lymphocytes # (auto) 4.5 uL; Lymphocytes % (auto) 35.9 % (10.0-50.0); Mean Corpuscular Hemoglobin 30.1 pg (28.0-32.0); Monocytes # (auto) 1.7 uL; Monocytes % (auto) 13.6 % (0.0-12.0); Neutrophils # (auto) 6.1 uL; Platelet Count (auto) 456 10^3/uL (140-450); Red Blood Cells 5.63 10^6/uL (4.5-5.90); Red Cell Distribution Width 14.7 % (11.8-14.3); White Blood Cell 12.4 10^3/uL (4.4-10.8)
[2019-02-14] MEDS ORDERED: IPRATROPIUM BROM 0.5 MG/2.5ML INH SOL NEB ONE (10:45)
[2019-02-14] MEDS ORDERED: ALBUTEROL SULF 2.5 MG/0.5ML(0.5%) NEB SOLN NEB ONE (10:45)
[2019-02-14] MEDS ORDERED: cefTRIAXone 1GM/50ML D5W 50 ML IV ONE (10:45)
[2019-02-14] MEDS ORDERED: PROMETHAZINE HCL 25 MG/ML 1ML IV ONE (11:00)
[2019-02-14] MEDS ORDERED: KETOROLAC TROMETH 30 MG/ML 1ML VIAL IV ONE (11:00)
[2019-02-14 11:02] LABS: Alanine Aminotransferase 43 U/L (16-61); Albumin 3.6 g/dL (3.4-5.0); Anion Gap 12 (5-15); Blood Urea Nitrogen 12 mg/dL (7-18); Carbon Dioxide 21 mmol/L (21-32); Chloride 103 mmol/L (98-107); Glucose 142 mg/dL (74-106); Potassium 3.1 mmol/L (3.5-5.1); Sodium 136 mmol/L (136-145)
[2019-02-14 11:06] LABS: Alkaline Phosphatase 123 U/L (45-117); Aspartate Aminotransferase 45 U/L (15-37); Bilirubin, Total 0.5 mg/dL (0.2-1.0); GFR African American 117 mL/min; GFR Non-African American 97 mL/min; Total Protein 8.9 g/dL (6.4-8.2)
[2019-02-14] MEDS ORDERED: POTASSIUM EFFERVESENT TAB 25 MEQ PO ONE (11:45)
[2019-02-14 12:03] VITALS: BP 141/84
== END 2019-02-14 12:18 | disposition home or self-care (01) ==
LOC: ER 09:53
DX: J18.9 Pneumonia, unspecified organism (principal); E87.6 Hypokalemia; E78.00 Pure hypercholesterolemia, unspecified; I10 Essential (primary) hypertension; J44.9 Chronic obstructive pulmonary disease, unspecified
CPT/HCPCS: 36415; 71046; 80053; 84484; 85025; 93005; 94640; 96365; 96375; 99284; J0696; J1885; J2550; J7611; J7644

== ENCOUNTER 2019-07-24 12:44 | Inpatient (IN) | payer OTHER, MEDICAID ==
[~2019-07-24] VITALS: Ht 182.9 cm; Wt 97.1 kg
[2019-07-24 13:43] LABS: Basophils # (auto) 0.1 10 ^3/uL (0-0.2); Eosinophils # (auto) 0.1 10 ^3/uL (0-0.8); Eosinophils % (auto) 1.3 % (0.0-7.0); Hematocrit 43.1 % (41.0-53.0); Hemoglobin 14.6 g/dL (13.5-17.5); Lymphocytes # (auto) 3.1 10 ^3/uL (0.4-5.4); Lymphocytes % (auto) 26.5 % (10.0-50.0); Mean Corpuscular Hemoglobin 30.7 pg (28.0-32.0); Mean Corpuscular Hgb Conc. 33.9 g/dL (32.0-36.0); Mean Corpuscular Volume 90.3 fL (80.0-100.0); Monocytes # (auto) 0.5 10 ^3/uL (0-1.3); Monocytes % (auto) 4.1 % (0.0-12.0); Neutrophils # (auto) 7.9 10 ^3/uL (1.6-8.6); Neutrophils % (auto) 67.1 % (37.0-80.0); Nucleated Red Blood Cells % 0.1 %; Red Blood Cells 4.77 10^6/uL (4.5-5.90); Red Cell Distribution Width 14.7 % (11.8-14.3); White Blood Cell 11.8 10^3/uL (4.4-10.8)
[2019-07-24 13:58] LABS: Platelet Count (auto) 604 10^3/uL (140-450)
[2019-07-24 14:00] LABS: Albumin 2.8 g/dL (3.4-5.0); Anion Gap 6 (5-15); Blood Urea Nitrogen 10 mg/dL (7-18); Calcium 9.3 mg/dL (8.5-10.1); Carbon Dioxide 23 mmol/L (21-32); Chloride 107 mmol/L (98-107); Glucose 166 mg/dL (74-106); Magnesium 2.2 mg/dL (1.6-2.6); Sodium 136 mmol/L (136-145)
[2019-07-24 14:07] LABS: Alanine Aminotransferase 53 U/L (16-61); Alkaline Phosphatase 152 U/L (45-117); Aspartate Aminotransferase 55 U/L (15-37); BUN/Creatinine Ratio 12.5; Bilirubin, Total 0.5 mg/dL (0.2-1.0); GFR African American 127 mL/min; GFR Non-African American 105 mL/min; Total Protein 8.7 g/dL (6.4-8.2)
[2019-07-24] MEDS ORDERED: FUROSEMIDE 40 MG/4 ML VIAL IV ONE (14:15)
[2019-07-24] MEDS ORDERED: MORPHINE SULF INJ 2 MG/ML SYRINGE 1ML IV PRN (15:00)
[2019-07-24] MEDS ORDERED: FUROSEMIDE 100 MG/10ML VIAL IV ONE (15:00)
[2019-07-24] MEDS ORDERED: ACETAMINOPHEN 500 MG TAB PO PRN (15:00)
[2019-07-24] MEDS ORDERED: hydrALAZINE HCL 20 MG/ML VL IV PRN (15:00)
[2019-07-24] MEDS ORDERED: NITROGLYCERIN 0.4 MG SL TAB SL PRN (15:00)
[2019-07-24] MEDS ORDERED: ONDANSETRON HCL 4 MG/2 ML VIAL IV PRN (15:00)
[2019-07-24] MEDS: PIPERACILLIN-TAZO 4.5GM 100 ML IV SCH ×2 (15:19→22:01)
[2019-07-24] MEDS: HYDROcodone-ACET 5/325MG TAB PO PRN (15:19)
[2019-07-24] MEDS ORDERED: IOHEXOL 300 MG/ML 100ML BOTTLE IJ ONE (15:37)
--- NOTE | 2019-07-24 15:50 | NUR ---
MS admit from ER DEVENDRA MEYER admitted to tele/MS after SBAR received. Patient oriented to CONNER HEBERT RN primary RN, TELE unit, room 249, bed B, and unit policies regarding patient care and visiting hours. Patient weighed by bedscale and encouraged to call if they need something. All questions and concerns addressed, patient verbalized understanding.
[2019-07-24 16:00] VITALS: BP 171/103
[2019-07-24 16:25] LABS: Cholesterol 152 mg/dL (< 200)
[2019-07-24 16:27] LABS: HDL Cholesterol 18 mg/dL (40-59); LDL Cholesterol 121 mg/dL (< 100); Triglycerides 113 mg/dL (< 150)
--- NOTE | 2019-07-24 16:40 | NUR ---
PAIN: PATIENT REPORTS TAKING NORCO 10 AT HOME. NORCO 5 GIVEN IN ER. PATIENT EXPRESSED MINIMAL RELIEF. WILL INFORM MD IF OTHER COMFORTS MEASURES GIVEN PROVIDE NO RELIEF.
[2019-07-24 17:00] VITALS: BP 144/88
[2019-07-24] MEDS: MORPHINE SULF INJ 2 MG/ML SYRINGE 1ML IV PRN ×2 (18:11→21:56)
--- NOTE | 2019-07-24 18:18 | NUR ---
MORPHINE GIVEN FOR SEVERE PAIN 11/09. POSTERIOR THORACIC AREA, SHARP PAIN REPORTED.
--- NOTE | 2019-07-24 18:41 | NUR ---
SCD'S: PATIENT AMBULATING, SCD'S REFUSED AT THIS TIME.
--- NOTE | 2019-07-24 19:09 | NUR ---
CARE ENDORSED TO PITO SESAY.
--- NOTE | 2019-07-24 19:28 | NUR ---
Opening Shift Note Assumed care of patient, awake and alert x 4. No S/S of distress/SOB. Bed is in lowest position and locked. Call light within reach. Board updated. Tele box number matches monitor and leads are in correct placement. Instructed on POC and to call for assist PRN, will continue to monitor for changes Q1hr and PRN.
[2019-07-24] MEDS: IPRATROPIUM BROM 0.5 MG/2.5ML INH SOL NEB SCH (19:45)
[2019-07-24] MEDS: ALBUTEROL SULF 2.5 MG/0.5ML(0.5%) NEB SOLN NEB SCH (19:45)
[2019-07-24] MEDS: BUDESONIDE (INHALATION) 0.5 MG/2 ML NEB NEB SCH (19:55)
[2019-07-24 22:00] VITALS: BP 128/76
[2019-07-24] MEDS: METOPROLOL TARTRATE 25 MG TAB PO SCH (22:01)
[2019-07-25] MEDS: IPRATROPIUM BROM 0.5 MG/2.5ML INH SOL NEB SCH ×4 (00:17→18:53)
[2019-07-25] MEDS: ALBUTEROL SULF 2.5 MG/0.5ML(0.5%) NEB SOLN NEB SCH ×4 (00:17→18:53)
[2019-07-25] MEDS: MORPHINE SULF INJ 2 MG/ML SYRINGE 1ML IV PRN ×5 (01:52→19:54)
[2019-07-25 05:52] VITALS: BP 131/88
[2019-07-25] MEDS: PIPERACILLIN-TAZO 4.5GM 100 ML IV SCH ×3 (05:52→21:37)
[2019-07-25 07:11] LABS: Eosinophils # (auto) 0.2 10 ^3/uL (0-0.8); Eosinophils % (auto) 1.7 % (0.0-7.0); Mean Corpuscular Volume 90.2 fL (80.0-100.0)
[2019-07-25 07:14] LABS: Basophils # (auto) 0.1 10 ^3/uL (0-0.2); Basophils % (auto) 0.7 % (0.0-2.0); Hematocrit 43.6 % (41.0-53.0); Hemoglobin 14.5 g/dL (13.5-17.5); Lymphocytes # (auto) 4.4 10 ^3/uL (0.4-5.4); Lymphocytes % (auto) 35.1 % (10.0-50.0); Mean Corpuscular Hemoglobin 30.1 pg (28.0-32.0); Mean Corpuscular Hgb Conc. 33.4 g/dL (32.0-36.0); Monocytes # (auto) 0.9 10 ^3/uL (0-1.3); Monocytes % (auto) 7.4 % (0.0-12.0); Neutrophils # (auto) 6.9 10 ^3/uL (1.6-8.6); Neutrophils % (auto) 55.1 % (37.0-80.0); Nucleated Red Blood Cells % 0.1 %; Platelet Count (auto) 670 10^3/uL (140-450); Red Blood Cells 4.84 10^6/uL (4.5-5.90); White Blood Cell 12.6 10^3/uL (4.4-10.8)
[2019-07-25] MEDS: BUDESONIDE (INHALATION) 0.5 MG/2 ML NEB NEB SCH ×2 (07:15→18:53)
--- NOTE | 2019-07-25 07:26 | NUR ---
OPENING SHIFT NOTE: PATIENT AWAKE RESTING IN BED, RECEIVING BREATHING TREATMENT. PATIENT STATED THROUGH MASK, "I AM TIRED OF FEELING LIKE THIS," WHEN ASKED ABOUT NAUSEA THIS MORNING. PATIENT EXPRESSED MINIMAL RELIEF. RESPIRATIONS EVEN AND UNLABORED. FALL PRECAUTIONS IN PLACE, CALL LIGHT WITHIN REACH, WILL CONTINUE TO MONITOR.
[2019-07-25 07:32] LABS: BUN/Creatinine Ratio 17.7; Calcium 9.4 mg/dL (8.5-10.1); Potassium 3.4 mmol/L (3.5-5.1)
--- NOTE | 2019-07-25 08:16 | NUR ---
YAEL BELLO PAGED TO UPDATE ON PATIENT STATUS.
[2019-07-25] MEDS ORDERED: ADENOSINE 82 MG in GIVE UN-DILUTED 0 ML IV STA (08:22)
--- NOTE | 2019-07-25 08:22 | NUR ---
CALL BACK FROM YAEL SENIOR NETWORK SYSTEMS ENGINEER: MADE AWARE OF PATIENT STATUS, ORDERS PENDING, PATIENT TAKEN DOWN TO STRESS LAB.
[2019-07-25] MEDS ORDERED: SODIUM CHLORIDE 0.9% 500 ML IV ONE (08:30)
[2019-07-25 09:00] VITALS: BP 139/93
[2019-07-25 09:04] VITALS: BP 123/72
--- NOTE | 2019-07-25 09:20 | NUR ---
PATIENT BACK FROM STRESS LAB. BP RE-ASSESSED 160/99 HR 97 O2 97 ON 2L NC RR 20 PAIN REPORTED 8/10 IN THE SUBSTERNAL CHEST AREA.
[2019-07-25] MEDS ORDERED: AZITHROMYCIN 500MG/ 250ML 250 ML IV SCH (10:00)
--- NOTE | 2019-07-25 10:00 | NUR ---
MORPHINE GIVEN FOR PAIN ORDERED.
[2019-07-25] MEDS: FOLIC ACID 1 MG TAB PO SCH (10:03)
[2019-07-25] MEDS: POTASSIUM CHL 20 Meq TABLET PO SCH (10:03)
[2019-07-25] MEDS: LISINOPRIL 20 MG TAB PO SCH (10:04)
[2019-07-25] MEDS: MULTIPLE VITAMIN TAB PO SCH (10:04)
[2019-07-25] MEDS: METOPROLOL TARTRATE 25 MG TAB PO SCH ×2 (10:04→21:35)
[2019-07-25] MEDS: FAMOTIDINE 20 MG TAB PO SCH (10:04)
[2019-07-25] MEDS: THIAMINE HCL 100 MG TAB PO SCH (10:05)
--- NOTE | 2019-07-25 10:15 | NUR ---
PCP: PER PATIENT, HE RECEIVED A PHONE CALL FROM PCP OFFICE AND WAS INFORMED TO HAVE THE PRIMARY RN CONTACT PCP'S OFFICE. PRIMARY CARE DR Massiel ALDANA MADE AWARE THAT PATIENT IS ADMITTED TO ROOM 249 BED B AT [facility], SPOKE WITH VERITO IN THE OFFICE. PATIENT HAS A PREVIOUSLY SCHEDULED APPOINTMENT WITH PCP ON 08-22 AT 3:45PM, WILL UPDATE F/U APPOINTMENT SHEET IN THE HARD CHART.
[2019-07-25 12:55] LABS: Amphetamine Screen, Urine NEGATIVE (NEGATIVE); Barbiturate Scree,Urine NEGATIVE (NEGATIVE); Benzodiazephine Screen, Urine NEGATIVE (NEGATIVE); Cannabinoid Screen, Urine POSITIVE (NEGATIVE); Cocaine Screen, Urine NEGATIVE (NEGATIVE); Opiate Scree,Urine POSITIVE (NEGATIVE); Phencyclidine Screen, Urine NEGATIVE (NEGATIVE)
[2019-07-25 13:00] VITALS: BP 151/83
--- NOTE | 2019-07-25 13:49 | NUR ---
PATIENT AMBULATING IN UNIT.
[2019-07-25] MEDS ORDERED: POTASSIUM CHL 20 Meq TABLET PO ONE (15:15)
[2019-07-25] MEDS ORDERED: FUROSEMIDE 100 MG/10ML VIAL IV ONE (15:15)
--- NOTE | 2019-07-25 15:15 | NUR ---
PHARMACY TO SEND 1400 [employer].
--- NOTE | 2019-07-25 16:33 | NUR ---
FAMILY CONTACT: EDILBERTO MEYER [phone]
[2019-07-25 17:18] VITALS: BP 147/87
--- NOTE | 2019-07-25 19:11 | NUR ---
CARE ENDORSED TO PITO SESAY.
[2019-07-25] MEDS ORDERED: TEMAZEPAM 15 MG CAP PO PRN (21:15)
[2019-07-25] MEDS: ATORVASTATIN 20 MG TAB PO SCH (21:34)
[2019-07-25 21:36] VITALS: BP 123/94
[2019-07-25] MEDS: levETIRAcetam 500 MG TAB PO SCH (21:36)
[2019-07-26] MEDS ORDERED: SODIUM CHLORIDE 0.9% 1,000 ML IV SCH (00:01)
[2019-07-26] MEDS: ALBUTEROL SULF 2.5 MG/0.5ML(0.5%) NEB SOLN NEB SCH ×4 (00:54→18:59)
[2019-07-26] MEDS: IPRATROPIUM BROM 0.5 MG/2.5ML INH SOL NEB SCH ×4 (00:54→18:59)
[2019-07-26] MEDS: MORPHINE SULF INJ 2 MG/ML SYRINGE 1ML IV PRN ×5 (01:00→22:13)
[2019-07-26 05:18] VITALS: BP 6/70
[2019-07-26] MEDS: PIPERACILLIN-TAZO 4.5GM 100 ML IV SCH ×3 (06:25→22:01)
[2019-07-26 06:50] LABS: Urine Bacteria NONE SEEN /hpf (None Seen); Urine Blood Negative /uL (Negative); Urine Mucus FEW (None Seen); Urine Specific Gravity 1.027 (1.001-1.035); Urine WBC 3 /hpf (0 - 3)
[2019-07-26 06:58] LABS: Eosinophils # (auto) 0.2 10 ^3/uL (0-0.8); Neutrophils # (auto) 7.1 10 ^3/uL (1.6-8.6); Nucleated Red Blood Cells % 0.1 %; Red Cell Distribution Width 14.8 % (11.8-14.3)
[2019-07-26 07:01] LABS: Basophils # (auto) 0.2 10 ^3/uL (0-0.2); Basophils % (auto) 1.3 % (0.0-2.0); Eosinophils % (auto) 1.6 % (0.0-7.0); Hemoglobin 14.4 g/dL (13.5-17.5); Lymphocytes # (auto) 4.1 10 ^3/uL (0.4-5.4); Lymphocytes % (auto) 32.8 % (10.0-50.0); Mean Corpuscular Hemoglobin 30.1 pg (28.0-32.0); Mean Corpuscular Hgb Conc. 33.4 g/dL (32.0-36.0); Mean Corpuscular Volume 90.3 fL (80.0-100.0); Neutrophils % (auto) 56.3 % (37.0-80.0); Platelet Count (auto) 690 10^3/uL (140-450); Red Blood Cells 4.76 10^6/uL (4.5-5.90); White Blood Cell 12.6 10^3/uL (4.4-10.8)
[2019-07-26] MEDS: BUDESONIDE (INHALATION) 0.5 MG/2 ML NEB NEB SCH ×2 (07:05→18:59)
--- NOTE | 2019-07-26 07:06 | NUR ---
OPENING SHIFT NOTES Assumed care of patient from hourly shift RN. Patient is alert and oriented x4, no signs of distress noted. Patient was updated on the plan of care and verbalized understanding. Patient is on oxygen at 3L via NC and saturation is 95%. Bed is locked, in the lowest position, side rails up x2 and call light is in reach. Patient was encouraged to call for assistance as needed.
[2019-07-26 07:15] LABS: BUN/Creatinine Ratio 22.5; Calcium 9.6 mg/dL (8.5-10.1)
[2019-07-26 08:04] LABS: INR 1.13 (0.9-1.15); Partial Thromboplastin Time 27.4 sec (23.64-32.05)
[2019-07-26 08:30] VITALS: BP 111/75
[2019-07-26] MEDS: HYDROcodone-ACET 5/325MG TAB PO PRN (08:33)
--- NOTE | 2019-07-26 09:32 | NUR ---
PATIENT TAKEN TO SURFBOARD DESIGNER accompanied by instructor military science and RN, no signs of distress noted.
[2019-07-26] MEDS ORDERED: IODIXANOL 320MG/ML 100ML BTL IV ONE (10:52)
[2019-07-26] MEDS ORDERED: LIDOCAINE 2%HCL (LOCAL ANESTH.) INJ 20ML MDV ONE (10:52)
[2019-07-26] MEDS ORDERED: VERAPAMIL 2.5MG/ML INJ 2ML VIAL IV ONE (11:02)
[2019-07-26] MEDS ORDERED: fentaNYL CITRATE 100 MCG/2 ML VL ONE (11:02)
[2019-07-26] MEDS ORDERED: HEPARIN SODIUM (PORCINE) 5000 UNITS/ML 1ML VIAL ONE (11:02)
[2019-07-26] MEDS ORDERED: ANGIOMAX 250 MG VIAL IV ONE (11:02)
[2019-07-26] MEDS ORDERED: MIDAZOLAM HCL 1MG/1ML-2 ML VIAL ONE (11:03)
[2019-07-26] MEDS ORDERED: SODIUM CHL 0.9% 0 ML ONE (11:03)
--- NOTE | 2019-07-26 11:47 | NUR ---
1200 med neb not administered. pt off unit at procedure.
--- NOTE | 2019-07-26 13:01 | NUR ---
PATIENT BACK FROM FILLING HAND Vasc band noted on left wrist, will remove per protocol. No signs of distress noted, patient placed back on oxygen as ordered.
--- NOTE | 2019-07-26 13:16 | NUR ---
Vasc band 2ml air aspirated per protocol, patient tolerated well. no signs of bleeding, no circulatory issues noted.
[2019-07-26] MEDS: levETIRAcetam 500 MG TAB PO SCH ×2 (13:20→21:52)
[2019-07-26] MEDS: FUROSEMIDE 100 MG/10ML VIAL IV SCH (13:20)
[2019-07-26] MEDS: MULTIPLE VITAMIN TAB PO SCH (13:20)
[2019-07-26] MEDS: METOPROLOL TARTRATE 25 MG TAB PO SCH ×2 (13:20→21:54)
[2019-07-26] MEDS: ASPirin-EC 81 mg tab PO SCH (13:21)
[2019-07-26] MEDS: LISINOPRIL 20 MG TAB PO SCH (13:21)
[2019-07-26] MEDS: POTASSIUM CHL 20 Meq TABLET PO SCH (13:21)
[2019-07-26] MEDS: FAMOTIDINE 20 MG TAB PO SCH (13:21)
[2019-07-26] MEDS: THIAMINE HCL 100 MG TAB PO SCH (13:22)
[2019-07-26] MEDS: FOLIC ACID 1 MG TAB PO SCH (13:22)
--- NOTE | 2019-07-26 13:31 | NUR ---
Vasc band 2ml air aspirated per protocol, patient tolerated well. no signs of bleeding, no circulatory issues noted.
--- NOTE | 2019-07-26 13:46 | NUR ---
Vasc band 2ml air aspirated per protocol, patient tolerated well. No signs of bleeding, no circulatory issues noted.
--- NOTE | 2019-07-26 14:01 | NUR ---
Vasc band 2ml air aspirated per protocol, patient tolerated well. No signs of bleeding, no circulatory issues noted.
--- NOTE | 2019-07-26 14:16 | NUR ---
Vasc band 2ml air aspirated per protocol, patient tolerated well. No signs of bleeding, no circulatory issues noted.
[2019-07-26 14:30] VITALS: BP 135/81
--- NOTE | 2019-07-26 14:36 | NUR ---
Vasc band 2ml air aspirated per protocol, patient tolerated well. No signs of bleeding, no circulatory issues noted.
--- NOTE | 2019-07-26 14:52 | NUR ---
Vasc band 2ml air aspirated per protocol, patient tolerated well. No signs of bleeding, no circulatory issues noted.
--- NOTE | 2019-07-26 15:08 | NUR ---
Vasc band 2ml air aspirated per protocol, patient tolerated well. No signs of bleeding, no circulatory issues noted.
--- NOTE | 2019-07-26 15:23 | NUR ---
Vasc band 2ml air aspirated per protocol, patient tolerated well. No signs of bleeding, no circulatory issues noted.
--- NOTE | 2019-07-26 15:33 | NUR ---
Vasc band 2ml air aspirated per protocol, patient tolerated well. No signs of bleeding, no circulatory issues noted.
--- NOTE | 2019-07-26 15:52 | NUR ---
Vasc band 2ml air aspirated per protocol, patient tolerated well. No signs of bleeding, no circulatory issues noted.
--- NOTE | 2019-07-26 16:30 | NUR ---
Vasc band 2ml air aspirated per protocol, patient tolerated well. No signs of bleeding, no circulatory issues noted.
[2019-07-26 16:49] VITALS: BP 108/67
--- NOTE | 2019-07-26 16:52 | NUR ---
Vasc band 2ml air aspirated per protocol, patient tolerated well. No signs of bleeding, no circulatory issues noted.
--- NOTE | 2019-07-26 17:37 | NUR ---
Vasc band 2ml air aspirated per protocol, patient tolerated well. No signs of bleeding, no circulatory issues noted.
--- NOTE | 2019-07-26 17:51 | NUR ---
Vasc band 2ml air aspirated per protocol, patient tolerated well. No signs of bleeding, no circulatory issues noted.
--- NOTE | 2019-07-26 17:53 | NUR ---
Vasc Band removed No bleeding noted, sterile gauze and Tegaderm applied. Patient tolerated well.
--- NOTE | 2019-07-26 20:00 | NUR ---
Opening Shift Note Assumed care of patient, awake and alert. No S/S of distress/SOB or pain. Instructed on POC,Seizure precaution and to call for assist PRN, will continue to monitor for changes Q1hr and PRN.
[2019-07-26] MEDS: ATORVASTATIN 20 MG TAB PO SCH (21:52)
[2019-07-26 22:06] VITALS: BP 107/71
[2019-07-27] MEDS: MORPHINE SULF INJ 2 MG/ML SYRINGE 1ML IV PRN ×3 (03:33→13:04)
[2019-07-27] MEDS: PIPERACILLIN-TAZO 4.5GM 100 ML IV SCH (05:43)
[2019-07-27 05:45] LABS: Basophils # (auto) 0.1 10 ^3/uL (0-0.2); Eosinophils # (auto) 0.3 10 ^3/uL (0-0.8); Mean Corpuscular Hgb Conc. 33.7 g/dL (32.0-36.0); Red Cell Distribution Width 14.5 % (11.8-14.3)
[2019-07-27 05:48] LABS: Eosinophils % (auto) 2.4 % (0.0-7.0); Hematocrit 42.1 % (41.0-53.0); Hemoglobin 14.2 g/dL (13.5-17.5); Lymphocytes % (auto) 44.3 % (10.0-50.0); Mean Corpuscular Hemoglobin 30.5 pg (28.0-32.0); Mean Corpuscular Volume 90.6 fL (80.0-100.0); Monocytes # (auto) 0.9 10 ^3/uL (0-1.3); Monocytes % (auto) 7.6 % (0.0-12.0); Neutrophils % (auto) 44.7 % (37.0-80.0); Nucleated Red Blood Cells % 0.2 %; Platelet Count (auto) 666 10^3/uL (140-450); Red Blood Cells 4.64 10^6/uL (4.5-5.90); White Blood Cell 11.2 10^3/uL (4.4-10.8)
[2019-07-27 05:53] VITALS: BP 118/76
[2019-07-27 06:07] LABS: Potassium 3.6 mmol/L (3.5-5.1)
[2019-07-27 06:11] LABS: BUN/Creatinine Ratio 27.4
[2019-07-27] MEDS: BUDESONIDE (INHALATION) 0.5 MG/2 ML NEB NEB SCH (06:15)
[2019-07-27] MEDS: ALBUTEROL SULF 2.5 MG/0.5ML(0.5%) NEB SOLN NEB SCH ×2 (06:20→13:12)
[2019-07-27] MEDS: IPRATROPIUM BROM 0.5 MG/2.5ML INH SOL NEB SCH ×2 (06:20→13:12)
--- NOTE | 2019-07-27 07:25 | NUR ---
Opening Shift Note Assumed care of patient, awake and alert. No S/S of distress/SOB, reports chronic back pain. Instructed on POC and to call for assist PRN, will continue to monitor for changes Q1hr and PRN.vs stable 93%on ra.
[2019-07-27 08:46] VITALS: BP 120/76
[2019-07-27] MEDS: ASPirin-EC 81 mg tab PO SCH (09:26)
[2019-07-27] MEDS: levETIRAcetam 500 MG TAB PO SCH (09:26)
[2019-07-27] MEDS: THIAMINE HCL 100 MG TAB PO SCH (09:27)
[2019-07-27] MEDS: FOLIC ACID 1 MG TAB PO SCH (09:27)
[2019-07-27] MEDS: FUROSEMIDE 100 MG/10ML VIAL IV SCH (09:27)
[2019-07-27] MEDS: POTASSIUM CHL 20 Meq TABLET PO SCH (09:28)
[2019-07-27] MEDS: MULTIPLE VITAMIN TAB PO SCH (09:28)
[2019-07-27] MEDS: METOPROLOL TARTRATE 25 MG TAB PO SCH (09:28)
[2019-07-27] MEDS: LISINOPRIL 20 MG TAB PO SCH (09:29)
[2019-07-27] MEDS: FAMOTIDINE 20 MG TAB PO SCH (09:29)
[2019-07-27 10:44] VITALS: BP 120/76
[2019-07-27 13:00] VITALS: BP 126/63
[2019-07-27] MEDS ORDERED: LEVO750T8 PO (13:12)
[2019-07-27 15:00] VITALS: BP 118/72
--- NOTE | 2019-07-27 16:10 | NUR ---
Discharge instructions given as ordered. Encourage to follow up with PMD as instructed. All questions and concerns addressed. Patient verbalized understanding. Medication reconciliation form completed and copy given to patient. Prescriptions picked up from [facility] pharmacy. IV removed with catheter intact, pressure dressing applied, . Telemetry unit returned to ICU. Patient taken to vehicle via wheelchair with all personal belongings, accompanied by staff, to family member awaiting outside. No distress noted at time of departure.
== END 2019-07-27 16:00 | disposition home or self-care (01) | DRG 871 ==
LOC: ER 12:44 → TELE 12:45 → TELE-EAST 16:06
PROVIDERS: ADMIT Nurse Practitioner Acute Care; ATTEND Internal Medicine
PROC: 4A023N7 Measurement of Cardiac Sampling and Pressure, Left Heart, Percutaneous Approach (ICD-10-PCS; principal; 2019-07-26)
PROC: B2111ZZ Fluoroscopy of Multiple Coronary Arteries using Low Osmolar Contrast (ICD-10-PCS; 2019-07-26)
PROC: B2151ZZ Fluoroscopy of Left Heart using Low Osmolar Contrast (ICD-10-PCS; 2019-07-26)
DX: A41.9 Sepsis, unspecified organism (principal); J18.9 Pneumonia, unspecified organism; I50.33 Acute on chronic diastolic (congestive) heart failure; J44.1 Chronic obstructive pulmonary disease with (acute) exacerbation; E44.0 Moderate protein-calorie malnutrition; I11.0 Hypertensive heart disease with heart failure; E11.9 Type 2 diabetes mellitus without complications; D72.829 Elevated white blood cell count, unspecified; R09.89 Other specified symptoms and signs involving the circulatory and respiratory systems; I25.10 Atherosclerotic heart disease of native coronary artery without angina pectoris; I77.819 Aortic ectasia, unspecified site; Z90.49 Acquired absence of other specified parts of digestive tract; Z68.29 Body mass index [BMI] 29.0-29.9, adult
CPT/HCPCS: 36415; 71045; 71260; 78452; 80048; 80053; 80061; 80307; 81001; 82962; 83036; 83735; 83880; 84443; 84484; 85025; 85610; 85730; 86850; 86900; 86901; 87081; 87804; 93005; 93017; 93306; 93458; 94640; 96365; 96367; 96375; 97163; 99152; G0378; J0153; J2250; J2405; J2543; Q9967

== ENCOUNTER 2020-04-25 20:40 | Inpatient (IN) | payer OTHER, MEDICAID ==
[~2020-04-25] VITALS: Ht 188 cm; Wt 90.7 kg
[~2020-04-25 20:40] MED LIST changes: +LEVO750T8 PO
[2020-04-25 22:13] LABS: Basophils # (auto) 0.2 10 ^3/uL (0-0.2); Basophils % (auto) 1.3 % (0.0-2.0)
[2020-04-25 22:14] LABS: Eosinophils # (auto) 0.5 10 ^3/uL (0-0.8); Hematocrit 42.3 % (41.0-53.0); Hemoglobin 14.1 g/dL (13.5-17.5); Lymphocytes # (auto) 6.1 10 ^3/uL (0.4-5.4); Lymphocytes % (auto) 46.3 % (10.0-50.0); Mean Corpuscular Hemoglobin 30.6 pg (28.0-32.0); Mean Corpuscular Hgb Conc. 33.3 g/dL (32.0-36.0); Mean Corpuscular Volume 91.9 fL (80.0-100.0); Monocytes # (auto) 1.1 10 ^3/uL (0-1.3); Monocytes % (auto) 8.5 % (0.0-12.0); Neutrophils # (auto) 5.2 10 ^3/uL (1.6-8.6); Neutrophils % (auto) 39.9 % (37.0-80.0); Nucleated Red Blood Cells % 0.1 %; Platelet Count (auto) 497 10^3/uL (140-450); Red Cell Distribution Width 15.2 % (11.8-14.3); White Blood Cell 13.1 10^3/uL (4.4-10.8)
[2020-04-25 22:27] LABS: Albumin 3.1 g/dL (3.4-5.0); Anion Gap 8 (5-15); Blood Urea Nitrogen 23 mg/dL (7-18); Calcium 8.1 mg/dL (8.5-10.1); Carbon Dioxide 24 mmol/L (21-32); Chloride 103 mmol/L (98-107); Glucose 146 mg/dL (74-106); Potassium 3.8 mmol/L (3.5-5.1); Sodium 135 mmol/L (136-145)
[2020-04-25 22:30] LABS: Lactic Acid w/Reflex 3.5 mmol/L (0.4-2.0)
[2020-04-25 22:33] LABS: Alanine Aminotransferase 52 U/L (16-61); Alkaline Phosphatase 124 U/L (45-117); Aspartate Aminotransferase 44 U/L (15-37); BUN/Creatinine Ratio 13.7; Bilirubin, Total 0.2 mg/dL (0.2-1.0); GFR African American 54 mL/min; GFR Non-African American 45 mL/min; INR 1.03 (0.9-1.15); Partial Thromboplastin Time 22.8 sec (23.0-31.2)
[2020-04-25] MEDS ORDERED: VANCOMYCIN PER PHARMACY 1,000 MG IV SCH (23:30)
[2020-04-25] MEDS ORDERED: SODIUM CHLORIDE 0.9% 2,250 ML IV ONE (23:30)
[2020-04-26] MEDS ORDERED: VANCOMYCIN 1GM/250ML 250 ML IV ONE (00:15)
[2020-04-26] MEDS: PIPERACILLIN-TAZOB 3.375GM 100 ML IV SCH ×4 (00:42→19:08)
[2020-04-26 03:15] LABS: Urine Bacteria FEW /hpf (None Seen); Urine Blood Negative /uL (Negative); Urine Hyaline Cast MANY /lpf (0 - 2); Urine Mucus FEW (None Seen); Urine Specific Gravity 1.021 (1.001-1.035); Urine WBC 6 /hpf (0 - 3)
[2020-04-26] MEDS ORDERED: ONDANSETRON ODT 4 MG TAB PO ONE (03:15)
[2020-04-26] MEDS ORDERED: HYDROcodone-ACET 5/325MG TAB PO ONE (03:15)
[2020-04-26] MEDS ORDERED: ONDANSETRON HCL 4 MG/2 ML VIAL IV PRN (05:15)
[2020-04-26] MEDS ORDERED: ACETAMINOPHEN 325 MG TAB PO PRN (05:15)
[2020-04-26] MEDS ORDERED: MORPHINE SULF INJ 2 MG/ML SYRINGE 1ML IV PRN (05:15)
[2020-04-26] MEDS ORDERED: DOCUSATE SOD 100 MG CAP PO PRN (05:15)
[2020-04-26] MEDS ORDERED: NITROGLYCERIN 0.4 MG SL TAB SL PRN (05:15)
[2020-04-26 06:55] LABS: Basophils # (auto) 0.1 10 ^3/uL (0-0.2); Monocytes # (auto) 1.5 10 ^3/uL (0-1.3); Nucleated Red Blood Cells % 0.1 %
[2020-04-26 06:58] LABS: Basophils % (auto) 0.6 % (0.0-2.0); Eosinophils # (auto) 0.3 10 ^3/uL (0-0.8); Eosinophils % (auto) 1.7 % (0.0-7.0); Hemoglobin 13.2 g/dL (13.5-17.5); Lymphocytes # (auto) 4.8 10 ^3/uL (0.4-5.4); Lymphocytes % (auto) 31.4 % (10.0-50.0); Mean Corpuscular Hgb Conc. 32.2 g/dL (32.0-36.0); Mean Corpuscular Volume 93.1 fL (80.0-100.0); Monocytes % (auto) 9.4 % (0.0-12.0); Neutrophils # (auto) 8.7 10 ^3/uL (1.6-8.6); Neutrophils % (auto) 56.9 % (37.0-80.0); Platelet Count (auto) 471 10^3/uL (140-450); Red Cell Distribution Width 15.2 % (11.8-14.3); White Blood Cell 15.4 10^3/uL (4.4-10.8)
[2020-04-26 06:59] LABS: Potassium 4.5 mmol/L (3.5-5.1)
[2020-04-26 07:11] LABS: Albumin 2.7 g/dL (3.4-5.0); BUN/Creatinine Ratio 16.7; Bilirubin, Total 0.3 mg/dL (0.2-1.0); Calcium 7.7 mg/dL (8.5-10.1); Total Protein 6.3 g/dL (6.4-8.2)
[2020-04-26] MEDS: SODIUM CHLORIDE 0.9% 1,000 ML IV SCH ×2 (08:47→22:00)
[2020-04-26] MEDS: HEPARIN SODIUM (PORCINE) 5000 UNITS/ML 1ML VIAL SC SCH ×2 (10:00→22:05)
[2020-04-26] MEDS ORDERED: FAMOTIDINE (10MG/ML) 2ML VL IV SCH (10:00)
[2020-04-26 11:35] LABS: CRP High Sensitivity 0.82 mg/dL (< 0.3); Magnesium 2.1 mg/dL (1.6-2.6)
[2020-04-26] MEDS: VANCOMYCIN 1GM/250ML 250 ML IV SCH ×2 (11:35→23:13)
[2020-04-26] MEDS: HYDROcodone-ACET 5/325MG TAB PO PRN ×3 (11:54→23:55)
[2020-04-26] MEDS ORDERED: COLCHICINE 0.6 MG CAP PO ONE (12:00)
[2020-04-26] MEDS ORDERED: PANTOPRAZOLE 40 MG TAB PO ONE (12:00)
[2020-04-26] MEDS ORDERED: ASPirin 325 MG TAB PO ONE (13:30)
[2020-04-26] MEDS ORDERED: IOHEXOL 350 MG/ML 100ML IJ ONE (15:20)
[2020-04-26] MEDS: Ensure HIGH Protein Chocolate 8oz Bottle PO SCH (18:00)
[2020-04-26] MEDS: COLCHICINE 0.6 MG CAP PO SCH (22:00)
[2020-04-27] MEDS: PIPERACILLIN-TAZOB 3.375GM 100 ML IV SCH ×3 (01:26→12:30)
[2020-04-27 07:34] LABS: Basophils # (auto) 0.1 10 ^3/uL (0-0.2); Eosinophils # (auto) 0.9 10 ^3/uL (0-0.8); Eosinophils % (auto) 8.5 % (0.0-7.0); Hematocrit 37.9 % (41.0-53.0); Hemoglobin 12.9 g/dL (13.5-17.5); Lymphocytes # (auto) 4.4 10 ^3/uL (0.4-5.4); Lymphocytes % (auto) 42.1 % (10.0-50.0); Mean Corpuscular Hemoglobin 31.2 pg (28.0-32.0); Mean Corpuscular Volume 91.7 fL (80.0-100.0); Monocytes # (auto) 1.2 10 ^3/uL (0-1.3); Monocytes % (auto) 11.4 % (0.0-12.0); Neutrophils # (auto) 3.9 10 ^3/uL (1.6-8.6); Nucleated Red Blood Cells % 0.1 %; Platelet Count (auto) 415 10^3/uL (140-450); Red Blood Cells 4.13 10^6/uL (4.5-5.90); Red Cell Distribution Width 14.9 % (11.8-14.3); White Blood Cell 10.4 10^3/uL (4.4-10.8)
[2020-04-27 07:44] LABS: Chloride 110 mmol/L (98-107); Potassium 3.7 mmol/L (3.5-5.1); Sodium 142 mmol/L (136-145)
[2020-04-27] MEDS: HYDROcodone-ACET 5/325MG TAB PO PRN (07:47)
[2020-04-27 07:51] LABS: Albumin 2.8 g/dL (3.4-5.0); Anion Gap 6 (5-15); Blood Urea Nitrogen 9 mg/dL (7-18); Carbon Dioxide 26 mmol/L (21-32); GFR African American 137 mL/min; GFR Non-African American 113 mL/min; Glucose 86 mg/dL (74-106)
[2020-04-27] MEDS: Ensure HIGH Protein Chocolate 8oz Bottle PO SCH ×3 (08:00→13:42)
[2020-04-27 08:07] LABS: Alanine Aminotransferase 31 U/L (16-61); Alkaline Phosphatase 112 U/L (45-117); Aspartate Aminotransferase 20 U/L (15-37); Bilirubin, Total 0.6 mg/dL (0.2-1.0); Calcium 8.1 mg/dL (8.5-10.1); Total Protein 6.2 g/dL (6.4-8.2)
[2020-04-27] MEDS: COLCHICINE 0.6 MG CAP PO SCH (09:54)
[2020-04-27] MEDS ORDERED: ENOXAPARIN SOD 40 MG/0.4 ML SYRINGE SC SCH (10:00)
[2020-04-27] MEDS ORDERED: ASPirin 325 MG TAB PO SCH (10:00)
[2020-04-27] MEDS ORDERED: BENAZEPRIL HCL 10 MG TAB PO SCH (10:00)
[2020-04-27] MEDS ORDERED: PANTOPRAZOLE 40 MG TAB PO SCH (10:00)
[2020-04-27] MEDS ORDERED: LORazepam 0.5 MG TAB PO PRN (11:00)
[2020-04-27] MEDS ORDERED: CITALOPRAM HYDROBR 20 MG TAB PO SCH (11:00)
[2020-04-27] MEDS: VANCOMYCIN 1GM/250ML 250 ML IV SCH (11:41)
[2020-04-27 14:25] VITALS: BP 139/79
[2020-04-27] MEDS: SODIUM CHLORIDE 0.9% 1,000 ML IV SCH (14:35)
[2020-04-27] MEDS ORDERED: VANCOMYCIN 1GM/250ML 250 ML IV SCH (19:00)
[2020-04-27] MEDS ORDERED: traZODone HCL 50 MG TAB PO SCH (22:00)
[2020-04-28] MEDS ORDERED: CITALOPRAM HYDROBR 20 MG TAB PO SCH (10:00)
== END 2020-04-27 15:03 | disposition home or self-care (01) | DRG 308 ==
LOC: EDBD 20:40 → ER 20:53 → TELE 04-26 05:23
PROVIDERS: ADMIT Nurse Practitioner Family; ATTEND Nurse Practitioner Family
DX: R00.1 Bradycardia, unspecified (principal); J18.9 Pneumonia, unspecified organism; I31.9 Disease of pericardium, unspecified; E44.0 Moderate protein-calorie malnutrition; J44.0 Chronic obstructive pulmonary disease with (acute) lower respiratory infection; I95.2 Hypotension due to drugs; E78.5 Hyperlipidemia, unspecified; N18.9 Chronic kidney disease, unspecified; F41.9 Anxiety disorder, unspecified; Z20.828 Contact with and (suspected) exposure to other viral communicable diseases; R73.9 Hyperglycemia, unspecified; R42 Dizziness and giddiness; F17.200 Nicotine dependence, unspecified, uncomplicated; G40.909 Epilepsy, unspecified, not intractable, without status epilepticus; K76.89 Other specified diseases of liver; I12.9 Hypertensive chronic kidney disease with stage 1 through stage 4 chronic kidney disease, or unspecified chronic kidney disease; Z79.899 Other long term (current) drug therapy; Z80.42 Family history of malignant neoplasm of prostate; Z90.81 Acquired absence of spleen; Z90.49 Acquired absence of other specified parts of digestive tract; T44.7X5A Adverse effect of beta-adrenoreceptor antagonists, initial encounter; Y92.89 Other specified places as the place of occurrence of the external cause
CPT/HCPCS: 36415; 36600; 71045; 71250; 71275; 80053; 81001; 82550; 82805; 83036; 83605; 83735; 83880; 84443; 84484; 85025; 85379; 85610; 85652; 85730; 86141; 86850; 86900; 86901; 87040; 87086; 87426; 93005; 93306; 93970; 96365; 96375; G0378; J2543; J3490; Q0162

== ENCOUNTER 2024-10-18 22:56 | Inpatient (IN) | payer OTHER, MEDICAID ==
[~2024-10-18] VITALS: Ht 172.7 cm; Wt 80.0 kg
[~2024-10-18 22:56] MED LIST changes: +BENA-36 PO; -BENA20TA14 PO; -SULF-92 PO; +SULF1TAB75 PO
[2024-10-18 23:10] VITALS: PULSE 64; RESP 21; O2SAT 97
[2024-10-18 23:24] LABS: Basophils # (auto) 0.1 10 ^3/uL (0-0.2); Basophils % (auto) 0.9 % (0.0-2.0); Eosinophils # (auto) 0.3 10 ^3/uL (0-0.8); Eosinophils % (auto) 2.4 % (0.0-7.0); Hematocrit 36.8 % (41.0-53.0); Hemoglobin 12.5 g/dL (13.5-17.5); Lymphocytes # (auto) 3.4 10 ^3/uL (0.4-5.4); Lymphocytes % (auto) 31.6 % (10.0-50.0); Mean Corpuscular Hemoglobin 31.4 pg (28.0-32.0); Mean Corpuscular Volume 92.3 fL (80.0-100.0); Monocytes # (auto) 0.6 10 ^3/uL (0-1.3); Monocytes % (auto) 5.9 % (0.0-12.0); Neutrophils # (auto) 6.3 10 ^3/uL (1.6-8.6); Neutrophils % (auto) 59.2 % (37.0-80.0); Nucleated Red Blood Cells % 0.1 %; Platelet Count (auto) 365 10^3/uL (140-450); Red Blood Cells 3.99 10^6/uL (4.5-5.90); Red Cell Distribution Width 14.7 % (11.8-14.3); White Blood Cell 10.7 10^3/uL (4.4-10.8)
--- NOTE | 2024-10-18 23:34 | ED.PDOC ---
History of Present Illness HPI Comments 64 y/o M is BIBA for c/o nonradiating, intermittent abdominal cramping, with associated chest pain, nausea, and dizziness. Per EMS report, patient endorses on symptoms starting, suddenly and unprovoked, this evening. Only notable history of recent stroke 2x months ago and bowel obstruction and splenectomy 5x years ago. Vitals were noted to have been stable and within normal limits, with exception of blood pressure being in the 80's systolically alongside. Patient was given 1L of IVF en route. No recent injuries, sick contacts, prior ailments, or known spoiled food consumption endorsed. Patient denies having any vomiting, diarrhea, urinary symptoms, shortness of breath, or further associated symptoms. Chief Complaint: Abdominal Pain Time Seen by MD: 23:00 Primary Care Provider: KATYA Reviewed Notes: Nurses Notes, Cashiers B[employer] Food Runners Notes, Medications, Allergies Allergies: Coded Allergies: NO KNOWN ALLERGIES (Unverified , 04/25/20) Home Meds Active Scripts Levofloxacin (Levaquin 750 mg) 750 Mg Tab, 1 TAB PO DAILY, #7 TAB Prov:SERGIO MÉNDEZ MD 07/27/19 Yeast (S. Boulardii)(S. Cerevi (Florastor) 250 Mg Cap, 250 MG PO DAILY, #10 CAP Prov:SERGIO MÉNDEZ MD 08/12/17 Cephalexin (Keflex) 500 Mg Cap, 1 CAP PO TID, #21 CAP Prov:SERGIO MÉNDEZ MD 08/12/17 Sulfamethoxazole W/Trimethopri (Smz-Tmp Ds) 1 Tab Tab, 1 TAB PO Q12HR, #14 TAB Prov:SERGIO MÉNDEZ MD 08/12/17 Reported Medications Levetiracetam (Levetiracetam) 750 Mg Tab, BID 08/05/17 Benazepril Hcl (Benazepril Hcl) 20 Mg Tab, 1 TAB PO BID, #60 04/18/14 Metoprolol Tartrate (Metoprolol Tartrate) 50 Mg Tab, 25 MG PO BID, #60 04/18/14 [Hydrocodon-Acetaminophn] 10-325 TAB No Conflict Check, 1 TAB PO Q8HP PRN for MODERATE PAIN, #90 04/18/14 Information Source: Patient, Emergency Med Personnel, [facility] Medical Record, Past Medical Record Mode of Arrival: EMS Severity: Moderate Timing: Hours Duration: Since onset Prehospital treatment: 12 Lead EKG, Accucheck, Tableau Architect, IVF Past Medical History PAST MEDICAL HISTORY: Anxiety, COPD, CVA, High Lipids, HTN, Liver Past Medical History (Other): bowel obstruction Surgical History: Cholecystectomy, Hernia Repair Surgical History (Other): splenectomy Family History Family History: Family hx of Cancer Social History Smoker: Chew Alcohol: Denies ETOH Use Drugs: Marijuana Lives In: Home All Other Systems: Reviewed and Negative (Comprehensive systems review obtained and negative except for what is stated in the HPI.) Physical Exam General Appearance: No Apparent Distress, Normal HEENT: Normal ENT Inspection, Pharynx Normal, TMs Normal Neck: Full Range of Motion, Non-Tender, Normal, Normal Inspection Respiratory: Chest Non-Tender, Lungs Clear, No Accessory Muscle Use, No Respiratory Distress, Normal Breath Sounds Cardiovascular: No Edema, No JVD, No Murmur, No Gallop, Normal Peripheral Pulses, Regular Rate/Rhythm Breast Exam: Deferred Gastrointestinal: Diffuse (tenderness), No Organomegaly, No Pulsatile Mass, Normal Bowel Sounds, Soft, Tenderness (diffused ), Other (surgyer scar in mid- abdomen ) Genitalia: Deferred Pelvic: Deferred Rectal: Deferred Extremities: No calf tenderness, Normal capillary refill, Normal inspection, Normal range of motion, Non-tender, No pedal edema Musculoskeletal : Apperance: Normal Neurologic: Alert, field service technician II-XII nml as Tested, No Motor Deficits, Normal Affect, Normal Mood, No Sensory Deficits Cerebellar Function: Normal Reflexes: Normal Skin: Dry, Normal Color, Warm Lymphatic: No Adenopathy Was a procedure done? Was a procedure done?: No Differential Dx Considerations may include: gastritis, gastroenteritis, PUD, GERD, bowel obstruction, viral syndrome, spoiled food, diverticulitis, appendicitis, cholelithiasis, cholecystitis, among others X-Ray, Labs, Meds, VS Vital Signs Date Time Temp Pulse Resp B/P (MAP) Pulse Ox O2 Delivery O2 Flow Rate FiO2 10/19/24 01:33 97/51 10/19/24 01:30 97/51 10/19/24 01:00 84/47 10/19/24 00:12 59 10/19/24 00:01 73 10/18/24 23:15 97.7 64 20 86/48 (61) 97 97.7 10/18/24 23:10 64 21 97 Nasal Cannula* 2 28 10/18/24 23:02 62 10/18/24 23:01 97.7 55 16 84/56 (65) 100 97.7 Lab Test 10/19/24 00:06 10/18/24 23:15 Range/Units Troponin I High Sensitivity < 3 L < 3 L </=54 ng/L White Blood Count 10.7 4.4-10.8 10^3/uL Red Blood Count 3.99 L 4.5-5.90 10^6/uL Hemoglobin 12.5 L 13.5-17.5 g/dL Hematocrit 36.8 L 41.0-53.0 % Mean Corpuscular Volume 92.3 80.0-100.0 fL Mean Corpuscular Hemoglobin 31.4 28.0-32.0 pg Mean Corpuscular Hemoglobin Concent 34.0 32.0-36.0 g/dL Red Cell Distribution Width 14.7 H 11.8-14.3 % Platelet Count 365 140-450 10^3/uL Mean Platelet Volume 8.3 6.9-10.8 fL Neutrophils (%) (Auto) 59.2 37.0-80.0 % Lymphocytes (%) (Auto) 31.6 10.0-50.0 % Monocytes (%) (Auto) 5.9 0.0-12.0 % Eosinophils (%) (Auto) 2.4 0.0-7.0 % Basophils (%) (Auto) 0.9 0.0-2.0 % Neutrophils # (Auto) 6.3 1.6-8.6 10 ^3/uL Lymphocytes # (Auto) 3.4 0.4-5.4 10 ^3/uL Monocytes # (Auto) 0.6 0-1.3 10 ^3/uL Eosinophils # (Auto) 0.3 0-0.8 10 ^3/uL Basophils # (Auto) 0.1 0-0.2 10 ^3/uL Nucleated Red Blood Cells 0.1 % Sodium Level 137 136-145 mmol/L Potassium Level 3.2 L 3.5-5.1 mmol/L Chloride Level 107 98-107 mmol/L Carbon Dioxide Level 19 L 20-31 mmol/L Anion Gap 11 5-15 Blood Urea Nitrogen 21 9-23 mg/dL Creatinine 1.00 0.700-1.30 mg/dL Glomerular Filtration Rate Calc 84 >90 mL/min BUN/Creatinine Ratio 21.0 H 10.0-20.0 Serum Glucose 236 H 74-106 mg/dL Calcium Level 8.3 L 8.7-10.4 mg/dL Total Bilirubin 0.2 0.2-1.0 mg/dL Aspartate Amino Transferase (AST) 32 <34 U/L Alanine Aminotransferase (ALT) 39 7-40 U/L Alkaline Phosphatase 81 46-116 U/L B-Type Natriuretic Peptide 23.05 0-100 pg/mL Total Protein 5.7 5.7-8.2 g/dL Albumin 3.4 3.2-4.8 g/dL Current Medications Medications (Trade) Dose Ordered Sig/Neris Route Start Time Stop Time Status Last Admin Albumin Human 250 ml @ 250 mls/hr ONCE ONCE IV 10/19/24 00:30 10/19/24 01:29 DC 10/19/24 00:28 Norepinephrine Bitartrate 250 ml @ 3.75 mls/hr Q24H IV 10/19/24 01:00 10/19/24 01:18 DC 10/19/24 01:00 Sodium Chloride 2,000 ml @ 1,000 mls/hr Q2H ONCE IV 10/19/24 00:00 10/19/24 01:59 10/19/24 00:00 Ketorolac Tromethamine (Toradol Injection) 30 mg ONCE ONCE IV 10/19/24 01:00 10/19/24 01:01 DC 10/19/24 01:03 Dopamine HCl/ Dextrose 250 ml @ 15.319 mls/ hr [id number] IV 10/19/24 01:30 10/19/24 01:30 X-Ray, Labs, Meds, VS Comment Patient received 2 L +albumin, still unable to maintain blood pressure map above 60. Patient started on 5 mcg dopamine which shows from a syncopal attack. Patient is still pending CT scans of head and abdomen. Time of 1ST Reevaluation: 23:30 Reevaluation 1ST: Unchanged Patient Education/Counseling: Diagnosis, Treatment Family Education/Counseling: No Family Present Assigned to Dr. Hardin Change of Shift?: Yes SEPSIS Sepsis Screen Date sepsis recognized/suspect: Oct 18, 2024 Time Sepsis recognized/suspect: 2302 Recent Procedure: No On Antibiotic Therapy: No Respiratory Rate >20: No Heart Rate >90: No Temp<36 C (96.8 F) or >38.3 C: No SBP <90 or MAP <65 mmHG: No New Acute Mental Status Change: No Is the patient on CPAP, BIPAP,: No Physician Orders Head Without Contrast (10/18/24 23:05) Ct Ab Pel Wo Con-No Oral Or Iv (10/18/24 23:05) Urinalysis (10/18/24 23:05) Chest Xray 1 View (10/18/24 23:05) Electrocardigram (10/19/24 00:46) Electrocardigram (10/19/24 01:46) Electrocardigram (10/19/24 03:46) Sodium Chloride 0.9% (10/19/24 00:00) Dopamine 1600mcg/Ml D5w (10/19/24 01:30) Vital Signs Date Time Temp Pulse Resp B/P (MAP) Pulse Ox O2 Delivery O2 Flow Rate FiO2 10/19/24 01:33 97/51 10/19/24 01:30 97/51 10/19/24 01:00 84/47 10/19/24 00:12 59 10/19/24 00:01 73 10/18/24 23:15 97.7 64 20 86/48 (61) 97 97.7 10/18/24 23:10 64 21 97 Nasal Cannula* 2 28 10/18/24 23:02 62 10/18/24 23:01 97.7 55 16 84/56 (65) 100 97.7 Laboratory Tests Test 10/18/24 23:15 White Blood Count 10.7 10^3/uL (4.4-10.8) Medications Medications Dose Ordered Sig/Neris Route Start Time Stop Time Status Last Admin Dose Admin Albumin Human 250 ml @ 250 mls/hr ONCE ONCE IV 10/19/24 00:30 10/19/24 01:29 DC 10/19/24 00:28 Dopamine HCl/ Dextrose 250 ml @ 15.319 mls/ hr [id number] IV 10/19/24 01:30 10/19/24 01:30 Ketorolac Tromethamine 30 mg ONCE ONCE IV 10/19/24 01:00 10/19/24 01:01 DC 10/19/24 01:03 Norepinephrine Bitartrate 250 ml @ 3.75 mls/hr Q24H IV 10/19/24 01:00 10/19/24 01:18 DC 10/19/24 01:00 Sodium Chloride 2,000 ml @ 1,000 mls/hr Q2H ONCE IV 10/19/24 00:00 10/19/24 01:59 10/19/24 00:00 Critical Care Note Critical Care Time?: Yes (30 min-critical care time only) Critical care comment: Due to a high probability of clinically significant, life threatening det erioration, the patient required my highest level of preparedness to intervene emergently and I personally spent this critical care time directly and personally managing the patient. This critical care time included obtaining a history; examining the patient; pulse oximetry; ordering and review of studies; arranging urgent treatment with development of a management plan; evaluation of patient's response to treatment; frequent reassessment; and, discussions with other providers. This critical care time was performed to assess and manage the high probability of imminent, life-threatening deterioration that could result in multi-organ failure. It was exclusive of separately billable procedures and treating other patients and teaching time. Stability Stability form required: No Heart Score Heart Score: Heart Score Response (Comments) Value History N/A 0 EKG N/A 0 Age N/A 0 Risk Factors N/A 0 Troponin N/A 0 Total 0 I personally scribed for REZA LOPEZ ([email or web address]) on 10/18/24 at 23:34. Electronically submitted by Jarred Galvez ([email or web address]). REZA LOPEZ Oct 18, 2024 23:34
[2024-10-18 23:45] LABS: Alanine Aminotransferase 39 U/L (7-40); Albumin 3.4 g/dL (3.2-4.8); Alkaline Phosphatase 81 U/L (46-116); Anion Gap 11 (5-15); Aspartate Aminotransferase 32 U/L (<34); Bilirubin, Total 0.2 mg/dL (0.2-1.0); Blood Urea Nitrogen 21 mg/dL (9-23); Calcium 8.3 mg/dL (8.7-10.4); Carbon Dioxide 19 mmol/L (20-31); Chloride 107 mmol/L (98-107); Glucose 236 mg/dL (74-106); Potassium 3.2 mmol/L (3.5-5.1); Sodium 137 mmol/L (136-145); Total Protein 5.7 g/dL (5.7-8.2)
[2024-10-19] VITALS (70 sets, daily range): BP systolic 78–157; BP diastolic 40–84; PULSE 38–120; RESP 5–23; TEMP 97.9–99; O2SAT 87–96
[2024-10-19] MEDS: SODIUM CHLORIDE 0.9% 2,000 ML IV ONE
[2024-10-19] MEDS: ALBUMIN 5% 250 ML IV ONE (00:28)
[2024-10-19] MEDS: NOREPINEPHRINE 8 MG/250ML KIT 250 ML IV SCH (01:00)
[2024-10-19] MEDS: NOREPINEPHRINE 8 MG/250ML KIT 250 ML IV ONE (01:02)
[2024-10-19] MEDS: KETOROLAC TROMETH 30 MG/ML 1ML VIAL IV ONE (01:03)
[2024-10-19] MEDS: DOPamine 1600MCG/ML D5W 250 ML IV SCH (01:30)
[2024-10-19] MEDS: DOPamine 1600MCG/ML D5W 250 ML IV ONE (01:34)
[2024-10-19 02:31] LABS: Urine Bacteria None Seen /hpf (None Seen)
[2024-10-19] MEDS: ACETAMINOPHEN IV 1000 MG/100ML (10MG/ML) IV ONE (02:56)
[2024-10-19 03:13] LABS: Urine Blood Negative /uL (Negative); Urine Clarity Clear (Clear); Urine Color Light-Yellow (Yellow); Urine Mucus FEW (None Seen); Urine Protein, UAD Negative (Negative); Urine Specific Gravity 1.009 (1.001-1.035); Urine Squamous Epithelial Cell FEW /hpf (<5); Urine Urobilinogen Normal (Negative); Urine WBC 1 /HPF (0-3); Urine pH 5.5 (5.0-9.0)
--- NOTE | 2024-10-19 03:21 | [facility] ---
EXAM: CT HEAD WITHOUT CONTRAST INDICATION: headache TECHNIQUE: CT of the head without intravenous contrast. Radiation Dose : 1. Head: CT Dose: CTDI volume is 57.75 mGy. Dose-length product is 1041.19 mGy*cm The dose indicators for CT are the volume Computed Tomography (CT) Dose Index (CTDIvol) and the Dose Length Product (DLP), and are measured in units of mGy and mGy-cm, respectively. These indicators are not patient dose, but values generated from the CT scanner acquisition factors. The report includes radiation exposure data for exposures received during this examination. COMPARISON: None FINDINGS: Multifocal right hemispheric encephalomalacia consistent with chronic infarcts of the temporal and pa rietal lobes. There is no evidence of acute intracranial hemorrhage, extra-axial collection, mass effect, midline s hift, herniation or hydrocephalus. The ventricles, sulci and cisterns are age appropriate. The cabrales-white differentiation is intact. Patchy periventricular and subcortical white matter hypoattenuation is nonspecific but may be related to small vessel ischemic disease. The visualized paranasal sinuses and mastoid air cells are clear. The surrounding soft tissues and osseous structures are unremarkable. IMPRESSION: 1. No acute intracranial abnormality. 2. Chronic sequelae of microvascular disease and multifocal right hemispheric chronic infarcts of the temporal and parietal lobes. Radiation optimization: All CT scans at this facility use at least one of these dose optimization jun hniques: automated exposure control mA and/or kV adjustment per patient size (includes targeted exam s where dose is matched to clinical indication) or iterative reconstruction.
--- NOTE | 2024-10-19 03:30 | [facility] ---
CHEST RADIOGRAPH Indication: cp Technique: Single frontal view of the chest was obtained Comparison: CHEST XRAY 1 VIEW on DOS: 04/25/20 FINDINGS: Lines and Tubes: None Lungs: No focal consolidation. Pleura: No effusion. No pneumothorax. Cardiomediastinal contours: Unremarkable Bones: No acute osseous abnormality. IMPRESSION: No acute cardiopulmonary disease.
--- NOTE | 2024-10-19 03:31 | [facility] ---
Exam: CT CT AB PEL WO CON-NO ORAL OR IV History: abd pain Comparison Study: None Technique: Multidetector spiral CT of the abdomen was performed from lung bases to pubic symphysis. I maging was performed without IV contrast. Axial, coronal and sagittal multiplanar reformats were obta ined from the axial data set by the technologist. Radiation Dose : 1. Abdomen/Pelvis: CTDIvol 21.98 mGy, DLP 1198.53 mGy*cm. Findings: Evaluation of solid organs is limited due to lack of intravenous contrast use. Lung Bases: Moderate bibasilar atelectasis, [id number]-[id number]-right. Mild patchy posterior left basi lar infiltrate. Normal heart size. No pleural or pericardial effusion. Liver: The liver is normal in size. No focal lesions. Gallbladder and Biliary Tree: Status post cholecystectomy. Spleen: Unremarkable Pancreas: The pancreas is grossly normal in appearance. Adrenal Glands: Unremarkable Kidneys: Kidneys are grossly normal without calculi or hydronephrosis. Bladder: Grossly unremarkable for degree of distention. Miguel catheter. Bowel: The stomach is grossly normal in appearance. Retained stool throughout the colon. Small bowel and colon are otherwise normal in caliber and distribution. The appendix is normal. Ascites: Absent Lymphadenopathy: No mesenteric, retroperitoneal or periportal lymphadenopathy. Abdominal Wall and Mesentery: Fat containing umbilical hernia. Vasculature: The visualized abdominal aorta is normal in size and caliber. Atherosclerotic vascular c alcifications. Evaluation of abdominal and pelvic vessels is limited due to lack of intravenous cont rast. Pelvic Organs: Unremarkable Musculoskeletal: No aggressive focal bony lesions, acute fractures or dislocation. IMPRESSION: 1. Mild left posterior basilar infiltrate and bibasilar atelectasis. 2. Retained colonic stool. Radiation optimization: All CT scans at this facility use at least one of these dose optimization jun hniques: automated exposure control mA and/or kV adjustment per patient size (includes targeted exam s where dose is matched to clinical indication) or iterative reconstruction.
[2024-10-19] MEDS: MORPHINE SULFATE INJ 2 MG/ml SYRG IV ONE (04:30)
[2024-10-19] MEDS ORDERED: NITROGLYCERIN 0.4 MG SL TAB SL PRN (05:15)
[2024-10-19] MEDS ORDERED: MORPHINE SULFATE INJ 2 MG/ml SYRG IV PRN (05:15)
--- NOTE | 2024-10-19 05:18 | DVHHP2 ---
History of Present Illness Reason for Visit: Chest pain History of Present Illness 64-year-old male presents for evaluation of chest pain. Patient initially presented with complaints of abdominal cramping. On arrival patient was noted to be bradycardic and hypotensive. He subsequently developed substernal pressure-like chest pain with shortness for breath. Currently denies any abdominal pain or cramps. 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 Past Medical History CVA, hypertension, liver disease, dyslipidemia, COPD Past Surgical History Cholecystectomy, hernia repair and a splenectomy Family History Noncontributory ALCOHOL: none Drugs: Marijuana Lives: with Family Review of Systems Review of Systems Review of systems are currently negative otherwise addressed in HPI. Allergies: Coded Allergies: NO KNOWN ALLERGIES (Unverified , 04/25/20) Medications Current Medications Medications Dose Ordered Sig/Neris Route Start Time Stop Time Status Last Admin Dose Admin Dopamine HCl/ Dextrose 250 ml @ 15.319 mls/ hr [id number] IV 10/19/24 01:30 10/19/24 01:30 15.319 MLS/HR Exam Vital Signs Vital Signs Date Time Temp Pulse Resp B/P (MAP) Pulse Ox O2 Delivery O2 Flow Rate FiO2 10/19/24 04:50 118/65 10/19/24 04:30 61 18 10/19/24 02:00 96 10/18/24 23:15 97.7 97.7 10/18/24 23:10 Nasal Cannula* 2 28 Exam Gen: 64-year-old male in mild distress Skin: Warm, dry, normal color and texture, no rash. HEENT: Normocephalic atraumatic, mucous membranes moist and pink. Neck: Cervical and supraclavicular nodes normal without enlargement, trachea is midline, thyroid gland is normal without masses. Pulmonary: Clear to auscultation and percussion bilaterally. Cardiac: Sinus bradycardia Abdomen: Soft, nontender, nondistended, bowel sounds present all 4 quadrants, no guarding, no rigidity, no organomegaly. Extremities: No cyanosis, clubbing, no edema Neuro: Left arm weakness from previous CVA, anisocoria for previous CVA Labs/Xrays ORDERING PHYSICIAN: REZA LOPEZ PROCEDURE(s): ABPL - CT AB PEL WO CON-NO ORAL OR IV REASON: abd pain ORDER NUMBER(s): [id number], ACCESSION NUMBER(s): [id number] Exam: CT CT AB PEL WO CON-NO ORAL OR IV History: abd pain Comparison Study: None Technique: Multidetector spiral CT of the abdomen was performed from lung bases to pubic symphysis. Imaging was performed without IV contrast. Axial, coronal and sagittal multiplanar reformats were obtained from the axial data set by the technologist. Radiation Dose : 1. Abdomen/Pelvis: CTDIvol 21.98 mGy, DLP 1198.53 mGy*cm. Findings: Evaluation of solid organs is limited due to lack of intravenous contrast use. Lung Bases: Moderate bibasilar atelectasis, [id number]-szczoja-iran-right. Mild patchy posterior left basilar infiltrate. Normal heart size. No pleural or pericardial effusion. Liver: The liver is normal in size. No focal lesions. Gallbladder and Biliary Tree: Status post cholecystectomy. Spleen: Unremarkable Pancreas: The pancreas is grossly normal in appearance. Adrenal Glands: Unremarkable Kidneys: Kidneys are grossly normal without calculi or hydronephrosis. Bladder: Grossly unremarkable for degree of distention. Miguel catheter. Bowel: The stomach is grossly normal in appearance. Retained stool throughout the colon. Small bowel and colon are otherwise normal in caliber and distribution. The appendix is normal. Ascites: Absent Lymphadenopathy: No mesenteric, retroperitoneal or periportal lymphadenopathy. Abdominal Wall and Mesentery: Fat containing umbilical hernia. Vasculature: The visualized abdominal aorta is normal in size and caliber. Atherosclerotic vascular calcifications. Evaluation of abdominal and pelvic vessels is limited due to lack of intravenous contrast. Pelvic Organs: Unremarkable Musculoskeletal: No aggressive focal bony lesions, acute fractures or dislocation. IMPRESSION: 1. Mild left posterior basilar infiltrate and bibasilar atelectasis. 2. Retained colonic stool. Radiation optimization: All CT scans at this facility use at least one of these dose optimization techniques: automated exposure control mA and/or kV adjustment per patient size (includes targeted exams where dose is matched to clinical indication) or iterative reconstruction. ATED BY: RIP TAFOYA MD DICTATED DATE/TIME: 10/19/24 5046 ORDERING PHYSICIAN: REZA LOPEZ PROCEDURE(s): HWOCT - HEAD WITHOUT CONTRAST REASON: headache ORDER NUMBER(s): [id number], ACCESSION NUMBER(s): [id number] EXAM: CT HEAD WITHOUT CONTRAST INDICATION: headache TECHNIQUE: CT of the head without intravenous contrast. Radiation Dose : 1. Head: CT Dose: CTDI volume is 57.75 mGy. Dose-length product is 1041.19 mGy*cm The dose indicators for CT are the volume Computed Tomography (CT) Dose Index (CTDIvol) and the Dose Length Product (DLP), and are measured in units of mGy and mGy-cm, respectively. These indicators are not patient dose, but values generated from the CT scanner acquisition factors. The report includes radiation exposure data for exposures received during this examination. COMPARISON: None FINDINGS: Multifocal right hemispheric encephalomalacia consistent with chronic infarcts of the temporal and parietal lobes. There is no evidence of acute intracranial hemorrhage, extra-axial collection, mass effect, midline shift, herniation or hydrocephalus. The ventricles, sulci and cisterns are age appropriate. The cabrales-white differentiation is intact. Patchy periventricular and subcortical white matter hypoattenuation is nonspecific but may be related to small vessel ischemic disease. The visualized paranasal sinuses and mastoid air cells are clear. The surrounding soft tissues and osseous structures are unremarkable. IMPRESSION: 1. No acute intracranial abnormality. 2. Chronic sequelae of microvascular disease and multifocal right hemispheric chronic infarcts of the temporal and parietal lobes. Radiation optimization: All CT scans at this facility use at least one of these dose optimization techniques: automated exposure control mA and/or kV adjustment per patient size (includes targeted exams where dose is matched to clinical indication) or iterative reconstruction. Labs Test 10/19/24 02:21 10/19/24 00:06 10/18/24 23:15 Range/Units Urine Color Light-yellow Yellow Urine Clarity Clear Clear Urine pH 5.5 5.0-9.0 Urine Specific [place] 1.009 1.001-1.035 Urine Protein Negative Negative Urine Ketones Negative Negative Urine Blood Negative Negative /uL Urine Nitrite Negative Negative Urine Bilirubin Negative Negative Urine Urobilinogen Normal Negative mg/dL Urine Leukocyte Esterase Negative Negative /uL Urine RBC None seen 0 - 3 /hpf Urine Microscopic WBC 1 0-3 /HPF Urine Squamous Epithelial Cells Few <5 /hpf Urine Bacteria None seen None Seen /hpf Urine Mucus Few None Seen Urine Glucose Normal Normal mg/dL Troponin I High Sensitivity < 3 L </=54 ng/L White Blood Count 10.7 4.4-10.8 10^3/uL Red Blood Count 3.99 L 4.5-5.90 10^6/uL Hemoglobin 12.5 L 13.5-17.5 g/dL Hematocrit 36.8 L 41.0-53.0 % Mean Corpuscular Volume 92.3 80.0-100.0 fL Mean Corpuscular Hemoglobin 31.4 28.0-32.0 pg Mean Corpuscular Hemoglobin Concent 34.0 32.0-36.0 g/dL Red Cell Distribution Width 14.7 H 11.8-14.3 % Platelet Count 365 140-450 10^3/uL Mean Platelet Volume 8.3 6.9-10.8 fL Neutrophils (%) (Auto) 59.2 37.0-80.0 % Lymphocytes (%) (Auto) 31.6 10.0-50.0 % Monocytes (%) (Auto) 5.9 0.0-12.0 % Eosinophils (%) (Auto) 2.4 0.0-7.0 % Basophils (%) (Auto) 0.9 0.0-2.0 % Neutrophils # (Auto) 6.3 1.6-8.6 10 ^3/uL Lymphocytes # (Auto) 3.4 0.4-5.4 10 ^3/uL Monocytes # (Auto) 0.6 0-1.3 10 ^3/uL Eosinophils # (Auto) 0.3 0-0.8 10 ^3/uL Basophils # (Auto) 0.1 0-0.2 10 ^3/uL Nucleated Red Blood Cells 0.1 % Sodium Level 137 136-145 mmol/L Potassium Level 3.2 L 3.5-5.1 mmol/L Chloride Level 107 98-107 mmol/L Carbon Dioxide Level 19 L 20-31 mmol/L Anion Gap 11 5-15 Blood Urea Nitrogen 21 9-23 mg/dL Creatinine 1.00 0.700-1.30 mg/dL Glomerular Filtration Rate Calc 84 >90 mL/min BUN/Creatinine Ratio 21.0 H 10.0-20.0 Serum Glucose 236 H 74-106 mg/dL Calcium Level 8.3 L 8.7-10.4 mg/dL Total Bilirubin 0.2 0.2-1.0 mg/dL Aspartate Amino Transferase (AST) 32 <34 U/L Alanine Aminotransferase (ALT) 39 7-40 U/L Alkaline Phosphatase 81 46-116 U/L B-Type Natriuretic Peptide 23.05 0-100 pg/mL Total Protein 5.7 5.7-8.2 g/dL Albumin 3.4 3.2-4.8 g/dL Assessment/Plan Assessment/Plan Assessment Chest pain rule out ACS r/o cardiogenic shock History of CVA Hypotension Plan Admit the patient to ICU to the hospitalist Neurology consult Continue dopamine drip Resume home medications Continue treatment per orders. Total critical care time excluding procedures performed 55 minutes. Plan discussed with: Patient My Orders Orders - YENNY DECKER Procedure Category Date Status Time (Nf) Dabigatran PHA 10/19/24 Verified 10:00 PTPTT LAB 10/19/24 Verified 05:07 Drug Screen LAB 10/19/24 Verified 05:07 Atorvastatin (Lipitor) PHA 10/19/24 Verified 22:00 Clopidogrel Bisulfate PHA 10/19/24 Verified (Plavix) 10:00 Levetiracetam Tablet PHA 10/19/24 Verified (Keppra Tablet) 10:00 * Cardiology Consult CONS 10/19/24 Verified 05:07 Admit ADMIT 10/19/24 Verified 05:07 Ondansetron Hcl PHA 10/19/24 Verified (Zofran) 05:15 Complete Blood Count LAB 10/20/24 Verified 04:00 Comprehensive LAB 10/20/24 Verified Metabolic Panel 04:00 Cardiac DIET 10/19/24 Verified Diet-2gna,Lofat,Lochol Breakfast Echo 2d Mode Cardiac US 10/19/24 Verified DOP 05:07 Condition: Critical HAY 10/19/24 Verified 05:07 Acetaminophen Tablet PHA 10/19/24 Verified (Tylenol Tablet) 05:15 Bedrest With Bathroom HAY 10/19/24 Verified Privileg 05:07 Nitroglycerin PHA 10/19/24 Verified Sublingual (Ntrostat 05:15 Morphine Sulfate PHA 10/19/24 Verified Injection 05:15 Stat Ekg For Chest [facility]AY 10/19/24 Verified Pain 05:07 Notify Of Changes [facility]AY 10/19/24 Verified From Base 05:07 Slubber Frame Changer For [facility] 10/19/24 Verified 24 Hours 05:07 Emergency Dysrhythmia [facility] 10/19/24 Verified Protocol 05:07 Rhythm Strips Once [facility] 10/19/24 Verified Every Shift 05:07 Oxygen By Nasal RT 10/19/24 Verified Cannula 05:07 Thyroid Stimulating LAB 10/19/24 Verified Hormone 05:07 Date of Service: Oct 19, 2024 Billing Provider: YENNY DECKER Common Visit Codes: [id number] CARE 30-74 MIN YENNY DECKER Oct 19, 2024 05:18
--- NOTE | 2024-10-19 05:34 | DVH ---
Procedure: CT CHEST WITHOUT CONTRAST Reason for study/Clinical History: Chest pain Comparison Study: CHEST WITHOUT CONTRAST on DOS: 04/26/20 TECHNIQUE: Multidetector CT of the chest was performed from the lung apices to the upper abdomen with out the use of intravenous contract. Axial, coronal and sagittal multiplanar reformats were performed . Radiation Dose Information: CT Dose: CTDI volume is 20.47 mGy. Dose-length product is 817.63 mGy*cm The dose indicators for CT are the volume Computed Tomography (CT) Dose Index (CTDIvol) and the Dose Length Product (DLP), and are measured in units of mGy and mGy-cm, respectively. These indicators are not patient dose, but values generated from the CT scanner acquisition factors. The report includes radiation exposure data for exposures received during this examination. FINDINGS: Lower neck: Unremarkable. Lungs: Indeterminate 0.5 cm nodule in the left lung base (image 92/140). Left lower lobe atelectasis/ consolidation. Heart/Vascular Structures: Cardiomegaly. Coronary artery calcifications. Vascular calcifications of t he aorta. Lymph Nodes: No adenopathy Pleura: No pleural effusion or significant pneumothorax. Musculoskeletal: No acute osseous abnormality. Multilevel degenerative changes of the spine. Soft tissues: Normal. Upper abdomen: Post cholecystectomy. Mildly distended stomach. IMPRESSION: Cardiomegaly. Coronary artery calcifications. Vascular calcifications of the aorta. Left lower lobe atelectasis/consolidation. Indeterminate 0.5 cm nodule in the left lung base. This may be infectious or inflammatory. Fleischner Society pulmonary nodule recommendations (2017): Single solid nodule <6 mm Low-risk patients: no routine follow-up required High-risk patients: optional CT at 12 months (particularly with suspicious nodule morphology and/or upper lobe location) Solitary solid nodule 6-8 mm Low-risk patients: CT at 6-12 months, then consider CT at 18-24 months High-risk patients: CT at 6-12 months, then CT at 18-24 months Solitary solid nodule >8 mm (>250 mm3) Low-risk and high-risk patients: consider CT at 3 months, PET/CT, or tissue sampling Multiple solid nodules <6 mm Low-risk patients: no routine follow-up required High-risk patients: optional CT at 12 months Multiple solid nodules >6 mm Low-risk patients: CT at 3-6 months, then consider CT at 18-24 months High-risk patients: CT at 3-6 months, then CT at 18-24 months When multiple nodules are present, the most suspicious nodule should guide further individualized management. Solitary groundglass opacities < 6 mm require no follow-up Multiple groundglass opacities < 6 mm: CT 3-6 months. If stable consider CT at 2 , and 4 years Groundglass opacities >6 mm: follow-up in 6-12 months and then every 2 years for 5 years. Groundglass opacities greater than 6 mm with part solid component follow-up CT in 3-6 months to confirm persistence. If unchanged and solid component remains less than [address] for 5 years Multiple groundglass opacities greater than 6 mm: CT at 3-6 months. Subsequent management based on the most suspicious nodules. These recommendations do not necessarily apply to women, patients with immunosuppression or a prior history of cancer, patients with multiple nodules that are suspicious for metastasis or infection, or patients with mediastinal lymphadenopathy or pleural effusion in whom cancer is strongly suspected. Radiation optimization: All CT scans at this facility use at least one of these dose optimization jun hniques: automated exposure control mA and/or kV adjustment per patient size (includes targeted exam s where dose is matched to clinical indication) or iterative reconstruction.
[2024-10-19 05:57] LABS: INR 1.13 (0.9-1.15); Partial Thromboplastin Time 29.7 SEC (24.5-34.5); Prothrombin Time 11.8 sec (9.3-11.8)
[2024-10-19 06:00] LABS: Opiate Scree,Urine Pos (NEGATIVE)
[2024-10-19 06:05] LABS: Amphetamine Screen, Urine Neg (NEGATIVE); Barbiturate Scree,Urine Neg (NEGATIVE); Benzodiazephine Screen, Urine Neg (NEGATIVE); Cannabinoid Screen, Urine Pos (NEGATIVE); Cocaine Screen, Urine Neg (NEGATIVE); Phencyclidine Screen, Urine Neg (NEGATIVE)
--- NOTE | 2024-10-19 07:17 | ECG ---
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
[2024-10-19] MEDS: levETIRAcetam 500 MG TAB PO SCH (09:55)
[2024-10-19] MEDS: HYDROcodone-ACET 10/325MG TAB PO ONE (10:22)
[2024-10-19] MEDS: PANTOPRAZOLE 40 MG TAB PO ONE (10:22)
[2024-10-19] MEDS: CLOPIDOGREL BISULFATE 75 MG TAB PO SCH (10:22)
[2024-10-19] MEDS: DABIGATRAN 75 MG CAP PO SCH (10:54)
[2024-10-19] MEDS ORDERED: DEXTROSE (50%) 50ML SYRG IV PRN (11:00)
--- NOTE | 2024-10-19 11:01 | DVHCONRES ---
Date Seen: Oct 19, 2024 Resident Creating Document: TIMOTHY TILLEY RESIDENT Reason for Consultation Chest pain, bradycardia History of Present Illness Patient is a 64-year-old male with past medical history of CVA, hypertension, hepatitis-C treated, dyslipidemia, COPD, who comes in due to abdominal cramping. According to the patient, yesterday on 10/18/2024 he started experiencing left abdominal cramps with radiation to the right flank along with lightheadedness and sensation. Patient notes he had similar symptoms 2-3 months ago when he was diagnosed with a CVA and that is why he decided to come to the hospital. Patient notes that the pain eventually extended to involve the chest area localizing it to the midepigastric region. On review of systems patient is complaining of fatigue, shortness of breath on exertion and nausea. Serial troponins are 3, 3, 6. EKG showed minimal ST elevations in heart score was 5. Patient notes he had left heart catheterization in 2019, unsure of the results and whether or not stenting was done. Currently denies any active ongoing chest pain. Past Medical History CVA, hypertension, hepatitis-C treated, dyslipidemia, COPD Past Surgical History Cholecystectomy, hernia repair surgery, splenectomy, PCI in 2019, bilateral knee surgery. Family History: FH: cirrhosis G8 MOTHER (ANEURSYM) Prostate cancer G8 FATHER Social History Smoking: Denies, chews tobacco Alcohol: Denies Drugs: Uses marijuana daily. Remote history of methamphetamine abuse. Allergies: Coded Allergies: NO KNOWN ALLERGIES (Unverified , 04/25/20) Home Meds Active Scripts Levofloxacin (Levaquin 750 mg) 750 Mg Tab, 1 TAB PO DAILY, #7 TAB Prov:SERGIO MÉNDEZ MD 07/27/19 Yeast (S. Boulardii)(S. Cerevi (Florastor) 250 Mg Cap, 250 MG PO DAILY, #10 CAP Prov:SERGIO MÉNDEZ MD 08/12/17 Cephalexin (Keflex) 500 Mg Cap, 1 CAP PO TID, #21 CAP Prov:SERGIO MÉNDEZ MD 08/12/17 Sulfamethoxazole W/Trimethopri (Smz-Tmp Ds) 1 Tab Tab, 1 TAB PO Q12HR, #14 TAB Prov:SERGIO MÉNDEZ MD 08/12/17 Reported Medications Levetiracetam (Levetiracetam) 750 Mg Tab, BID 08/05/17 Benazepril Hcl (Benazepril Hcl) 20 Mg Tab, 1 TAB PO BID, #60 04/18/14 Metoprolol Tartrate (Metoprolol Tartrate) 50 Mg Tab, 25 MG PO BID, #60 04/18/14 [Hydrocodon-Acetaminophn] 10-325 TAB No Conflict Check, 1 TAB PO Q8HP PRN for MODERATE PAIN, #90 04/18/14 Current Medications Current Medications Medications (Trade) Dose Ordered Sig/Neris Route PRN Reason Start Time Stop Time Status Last Admin Norepinephrine Bitartrate 250 ml @ 3.75 mls/hr Q24H IV 10/19/24 01:00 10/19/24 01:18 DC 10/19/24 01:00 Dopamine HCl/ Dextrose 250 ml @ 15.319 mls/ hr [id number] IV 10/19/24 01:30 10/19/24 10:23 Dabigatran (Pradaxa Capsule) 150 mg BID PO 10/19/24 10:00 Atorvastatin Calcium (Lipitor) 80 mg HS PO 10/19/24 22:00 Clopidogrel Bisulfate (Plavix) 75 mg DAILY PO 10/19/24 10:00 10/19/24 10:22 Levetiracetam (Keppra Tablet) 750 mg BID PO 10/19/24 10:00 Ondansetron HCl (Zofran) 4 mg Q4HP PRN IV NAUSEA / VOMITING 10/19/24 05:15 Acetaminophen (Tylenol Tablet) 650 mg Q6HP PRN PO PAIN SCALE 1-3 OR TEMP>100.4 10/19/24 05:15 Nitroglycerin (Ntrostat Sublingual) 0.4 mg Q5MINP PRN SL FOR CHEST PAIN 10/19/24 05:15 Morphine Sulfate 2 mg Q30M PRN IV FOR CHEST PAIN 10/19/24 05:15 Review of Systems Patient seen and examined at bedside. Patient is alert and oriented to time, place person and responding to all questions. General: Fatigue Eyes: No Pain, No Vision change, No Conjunctivae inflammation, No Eyelid inflammation, No Other, No Redness ENT: No Ear pain, No Ear discharge, No Nose pain, No Nose discharge, No Nose congestion, No Mouth pain, No Mouth swelling, No Throat pain, No Throat swelling, No Other Cardiovascular: No Chest Pain, No Palpitations, No Orthopnea, No Paroxysmal No Dyspnea, No Edema, No Lt Headedness, No Other Respiratory: No Cough, No Dry, No Shortness of breath, SOB with exertion, No Wheezing, No Hemoptysis, No Pleuritic Pain, No Sputum, No Other Gastrointestinal: Nausea, No Vomiting, No Abdominal Pain, No Diarrhea, No Constipation, No Melena, No Hematochezia, No Other Genitourinary: No Dysuria, No Frequency, No Incontinence, No Hematuria, No Retention, No Other Musculoskeletal: No other, No neck pain, No shoulder pain, No arm pain, No back pain, No hand pain, No leg pain, No foot pain Skin: No Rash, No Lesions, No Jaundice, No Bruising, No Other Vital Signs Vital Signs Date Time Temp Pulse Resp B/P (MAP) Pulse Ox O2 Delivery O2 Flow Rate FiO2 10/19/24 10:23 117/22 10/19/24 09:52 62 10/19/24 09:51 18 94 Nasal Cannula* 3 32 10/19/24 08:00 97.9 97.9 Physical Exam General Appearance: Cooperative. Well developed. Well nourished. NAD dry mucous membranes Head Exam: Normal inspection Neck Exam: Normal inspection. Non-tender. Normal alignment Pulmonary/Respiratory: Chest non-tender. Clear bilateral breath sounds, no crackles, no wheezing. Cardiovascular/Chest: Regular rate and rhythm. No murmurs. No JVD. Peripheral Pulses: 2+ Radial (R). 2+ Radial (L). 2+ Pedal (R). 2+ Pedal (L) Abdominal Exam: Normal bowel sounds. Soft. normal abdomen, no visible veins, generalized abdominal tenderness to palpation, more pronounced in the left lower quadrant, sided costovertebral angle tenderness, guarding No hepatospenomegaly. No masses Ankle Exam: Negative ankle edema Lower extremities: Negative lower extremity edema Neuro/Mental Status: A&O x4. Coherent. Thoughts/Psych: Normal thought pattern. Appropriate mood and affect. Good judgement and insight Skin Exam: Normal inspection. Normal color. Warm. Dry Labs/Diagnostic Data Labs Test 10/19/24 05:19 10/19/24 02:21 10/18/24 23:15 Range/Units Prothrombin Time 11.8 9.3-11.8 sec Prothrombin Time INR 1.13 0.9-1.15 Activated Partial Thromboplast Time 29.7 24.5-34.5 SEC Troponin I High Sensitivity 6 </=54 ng/L Thyroid Stimulating Hormone (TSH) 0.40 L 0.55-4.78 uIU/mL Urine Color Light-yellow Yellow Urine Clarity Clear Clear Urine pH 5.5 5.0-9.0 Urine Specific [place] 1.009 1.001-1.035 Urine Protein Negative Negative Urine Ketones Negative Negative Urine Blood Negative Negative /uL Urine Nitrite Negative Negative Urine Bilirubin Negative Negative Urine Urobilinogen Normal Negative mg/dL Urine Leukocyte Esterase Negative Negative /uL Urine RBC None seen 0 - 3 /hpf Urine Microscopic WBC 1 0-3 /HPF Urine Squamous Epithelial Cells Few <5 /hpf Urine Bacteria None seen None Seen /hpf Urine Mucus Few None Seen Urine Glucose Normal Normal mg/dL Urine Opiates Screen Pos NEGATIVE Urine Fentanyl Screen Neg NEGATIVE Urine Barbiturates Screen Neg NEGATIVE Urine Phencyclidine Screen Neg NEGATIVE Urine Amphetamines Screen Neg NEGATIVE Urine Benzodiazepines Screen Neg NEGATIVE Urine Cocaine Screen Neg NEGATIVE Urine Cannabinoids Screen Pos NEGATIVE White Blood Count 10.7 4.4-10.8 10^3/uL Red Blood Count 3.99 L 4.5-5.90 10^6/uL Hemoglobin 12.5 L 13.5-17.5 g/dL Hematocrit 36.8 L 41.0-53.0 % Mean Corpuscular Volume 92.3 80.0-100.0 fL Mean Corpuscular Hemoglobin 31.4 28.0-32.0 pg Mean Corpuscular Hemoglobin Concent 34.0 32.0-36.0 g/dL Red Cell Distribution Width 14.7 H 11.8-14.3 % Platelet Count 365 140-450 10^3/uL Mean Platelet Volume 8.3 6.9-10.8 fL Neutrophils (%) (Auto) 59.2 37.0-80.0 % Lymphocytes (%) (Auto) 31.6 10.0-50.0 % Monocytes (%) (Auto) 5.9 0.0-12.0 % Eosinophils (%) (Auto) 2.4 0.0-7.0 % Basophils (%) (Auto) 0.9 0.0-2.0 % Neutrophils # (Auto) 6.3 1.6-8.6 10 ^3/uL Lymphocytes # (Auto) 3.4 0.4-5.4 10 ^3/uL Monocytes # (Auto) 0.6 0-1.3 10 ^3/uL Eosinophils # (Auto) 0.3 0-0.8 10 ^3/uL Basophils # (Auto) 0.1 0-0.2 10 ^3/uL Nucleated Red Blood Cells 0.1 % Sodium Level 137 136-145 mmol/L Potassium Level 3.2 L 3.5-5.1 mmol/L Chloride Level 107 98-107 mmol/L Carbon Dioxide Level 19 L 20-31 mmol/L Anion Gap 11 5-15 Blood Urea Nitrogen 21 9-23 mg/dL Creatinine 1.00 0.700-1.30 mg/dL Glomerular Filtration Rate Calc 84 >90 mL/min BUN/Creatinine Ratio 21.0 H 10.0-20.0 Serum Glucose 236 H 74-106 mg/dL Calcium Level 8.3 L 8.7-10.4 mg/dL Total Bilirubin 0.2 0.2-1.0 mg/dL Aspartate Amino Transferase (AST) 32 <34 U/L Alanine Aminotransferase (ALT) 39 7-40 U/L Alkaline Phosphatase 81 46-116 U/L B-Type Natriuretic Peptide 23.05 0-100 pg/mL Total Protein 5.7 5.7-8.2 g/dL Albumin 3.4 3.2-4.8 g/dL Assessment Asymptomatic bradycardia, improving Intractable abdominal pain History of recurrent CVAs Essential hypertension Hepatitis-C, treated COPD sepsis possibly due to pneumonia? 0.5 cm nodule in left lung base Pulmonary hypertension with RVSP 51 mmHg Moderate tricuspid regurgitation Plan: Repeat echocardiogram: EF 50-55%, RV mildly dilated with normal function. LAD NR a mildly dilated. Moderate pulmonary hypertension, moderate TR. Mild- moderate MR. Mild aortic stenosis, mild-moderate aortic regurgitation. Continue atorvastatin, Plavix Serial troponins <3, <3, 6; EKG shows nonspecific ST changes, pauses or AV blocks noted. Considering heart score of 5, outpatient stress test is recommended. If chest pain persists consider inpatient stress test. Antibiotics Rest of the plan as per course of hospitalization Outpatient follow up for evaluation and monitoring of pulmonary nodule Thank you so much for the opportunity to consult on your patient. Cardiology team will sign off. In case of any questions or concerns please feel free to reach out. Plan discussed with Dr. Mathias Plan discussed with: Patient, Other (RN) Visit Coding Cardiology RES Date of Service: Oct 19, 2024 Billing Provider: WYATT MATHIAS Sr., MD Cardiology Common Codes: [id number] INP/OBS CARE (High) TIMOTHY TILLEY RESIDENT Oct 19, 2024 11:01
--- NOTE | 2024-10-19 11:11 | ECG ---
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
[2024-10-19 11:48] LABS: Triglycerides 41 mg/dL (< 150)
[2024-10-19 11:49] LABS: LDL Cholesterol 35 mg/dL (< 100)
[2024-10-19 11:50] LABS: Cholesterol 84 mg/dL (< 200); HDL Cholesterol 35 mg/dL (40-59)
[2024-10-19] MEDS: InsuLIN REG 1unit/0.01ml Soln (100units/ml) SC SCH (12:00)
[2024-10-19] MEDS: ACCU-CHEK COMFORT CURVE STRIP VI SCH (12:16)
--- NOTE | 2024-10-19 12:46 | DVH ---
Carotid Duplex Date: 10/19/2024 12:15 PM Clinical History: presyncope Comparison: None Technique: Duplex doppler evaluation of the extracranial carotid and vertebral arteries including col or doppler and spectral/pulsed waveform analysis was performed. Findings: RIGHT SIDE: The peak systolic velocities are 68 cm/s in the distal CCA and 235 cm/s in the proximal ICA.The ICA/C CA ratio is 3.5. Large amount of calcified atherosclerotic plaque noted at the proximal right interna l carotid artery. The external carotid artery is patent with peak systolic velocity of 87 cm/s proximally. There is appropriate antegrade flow in the right vertebral artery. LEFT SIDE: The peak systolic velocities are 91 cm/s in the distal CCA and 82cm/s in the proximal ICA. The ICA/C CA ratio is less than 1. The external carotid artery is patent with peak systolic velocity of 81 cm/s proximally. There is appropriate antegrade flow in the left vertebral artery. IMPRESSION: 1. Greater than 70% stenosis of the proximal right internal carotid artery due to atherosclerotic clara que 2. No hemodynamically significant stenosis noted in the left carotid system. 3. Reference: Radiology 2003; 229:340-346
[2024-10-19 12:52] LABS: Alkaline Phosphatase 103 U/L (46-116); Anion Gap 15 (5-15); BUN/Creatinine Ratio 20.9 (10.0-20.0); Blood Urea Nitrogen 18 mg/dL (9-23); Calcium 9.1 mg/dL (8.7-10.4); Magnesium 2.1 mg/dL (1.6-2.6); Potassium 4.1 mmol/L (3.5-5.1); Sodium 140 mmol/L (136-145); Total Protein 6.6 g/dL (5.7-8.2)
[2024-10-19 12:53] LABS: Bilirubin, Total 0.3 mg/dL (0.2-1.0)
[2024-10-19 12:54] LABS: Alanine Aminotransferase 126 U/L (7-40); Aspartate Aminotransferase 114 U/L (<34); Carbon Dioxide 13 mmol/L (20-31); Chloride 112 mmol/L (98-107); Glucose 140 mg/dL (74-106)
[2024-10-19 12:58] LABS: Basophils # (auto) 0.1 10 ^3/uL (0-0.2); Basophils % (auto) 0.7 % (0.0-2.0); Eosinophils # (auto) 0 10 ^3/uL (0-0.8); Eosinophils % (auto) 0.3 % (0.0-7.0); Hematocrit 41.4 % (41.0-53.0); Hemoglobin 13.7 g/dL (13.5-17.5); Lymphocytes # (auto) 4.2 10 ^3/uL (0.4-5.4); Lymphocytes % (auto) 27.7 % (10.0-50.0); Mean Corpuscular Hemoglobin 30.8 pg (28.0-32.0); Mean Corpuscular Hgb Conc. 33.1 g/dL (32.0-36.0); Mean Corpuscular Volume 93.2 fL (80.0-100.0); Monocytes # (auto) 1.2 10 ^3/uL (0-1.3); Monocytes % (auto) 7.9 % (0.0-12.0); Neutrophils # (auto) 9.8 10 ^3/uL (1.6-8.6); Neutrophils % (auto) 63.4 % (37.0-80.0); Nucleated Red Blood Cells % 0.1 %; Platelet Count (auto) 387 10^3/uL (140-450); Red Blood Cells 4.44 10^6/uL (4.5-5.90); Red Cell Distribution Width 14.8 % (11.8-14.3); White Blood Cell 15.4 10^3/uL (4.4-10.8)
[2024-10-19] MEDS: ONDANSETRON HCL 4 MG/2 ML VIAL IV PRN (14:30)
[2024-10-19] MEDS: SODIUM CHLORIDE 0.9% 1,000 ML IV SCH (15:00)
--- NOTE | 2024-10-19 16:44 | DVHSR ---
APPROVED REPORT EXAM: Two-dimensional and M-mode echocardiogram with Doppler and color Doppler. Blood Pressure: 126/57 mmHg INDICATION Chest Pain RISK FACTORS Height: 68, Weight: 180 DIMENSIONS LVDd4.9 (3.8-5.7cm)LA (2D)4.6 (1.9-4.0cm)Aortic Root3.8 (2.0-3.7cm) LVDs3.3 (2.5-4.0cm)LA (MM) (1.9-4.0cm)Aortic Cusp Exc1.7 (1.5-2.0cm) EF (%) 61.0 (55-70%)Rt. Atrium4.1 (1.9-4.0cm)Asc. Aorta cm Mitral Valve MitralMitral Stenosis E wave1.30m/sMV Mean GR.mmHg A wavem/sMV Peak GR.186mmHg E/A ratio0.02D MVAcm2 Aortic Valve Aortic ValveAortic Stenosis V11.47m/Bobby Mean GR.10mmHg V22.46m/Bobby Peak GR.24mmHg LVOT Diameter2.2 (1.8-2.4cm)Doppler AVA2.27cm2 AI P 1/2 Pgjn656.93ms Pulmonic Valve V21.35m/s Tricuspid Valve TR Velocity3.46m/s [id number] Other Information Technically limited study due to body habitus. Conclusion LVEF 50-55% RV mildly dilated, normal function LA and RA mildly dilated Moderate pulmonary hypertension, moderate TR mild - moderate MR Mild aortic stenosis, mild-moderate aortic regurgitation
--- NOTE | 2024-10-19 16:45 | DVHPN2 ---
Subjective I am assuming the care of the patient from today onwards who was the under the care of hospitalist HEIDI detailed sign out obtained. Chart reviewed. This is 64-year-old male with a known history of hypertension, chronic pain syndrome, peripheral neuropathy, history of recent TIA/CVA presented to the hospital abdominal pain found to have hypotension and bradycardia. 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 Medications Current Medications Medications Dose Ordered Sig/Neris Route Start Time Stop Time Status Last Admin Dose Admin Dopamine HCl/ Dextrose 250 ml @ 15.319 mls/ hr [id number] IV 10/19/24 01:30 10/19/24 10:23 33.701 MLS/HR Dabigatran 150 mg BID PO 10/19/24 10:00 10/19/24 10:54 150 MG Atorvastatin Calcium 80 mg HS PO 10/19/24 22:00 Clopidogrel Bisulfate 75 mg DAILY PO 10/19/24 10:00 10/19/24 10:22 75 MG Ondansetron HCl 4 mg Q4HP PRN IV 10/19/24 05:15 10/19/24 14:30 4 MG Acetaminophen 650 mg Q6HP PRN PO 10/19/24 05:15 Nitroglycerin 0.4 mg Q5MINP PRN SL 10/19/24 05:15 Morphine Sulfate 2 mg Q30M PRN IV 10/19/24 05:15 Diagnostic Test (Pha) 1 strip IQ4HR 10/19/24 12:00 10/19/24 16:21 1 STRIP Insulin Human Regular IQ4HR SC 10/19/24 12:00 Dextrose 50 ml UD PRN IV 10/19/24 11:00 Sodium Chloride 1,000 ml @ 125 mls/hr Q8H IV 10/19/24 14:15 10/19/24 15:00 125 MLS/HR Acetaminophen/ Hydrocodone Bitart 1 tab Q6HP PRN PO 10/19/24 15:15 UNV Pantoprazole Sodium 40 mg BID IV 10/19/24 22:00 UNV Laboratory Results Laboratory Tests 10/19/24 05:19 Chemistry Test 10/18/24 23:15 10/19/24 05:19 Albumin 3.4 g/dL (3.2-4.8) 4.0 g/dL (3.2-4.8) Calcium Level 8.3 mg/dL (8.7-10.4) L 9.1 mg/dL (8.7-10.4) Total Protein 5.7 g/dL (5.7-8.2) 6.6 g/dL (5.7-8.2) Magnesium Level 2.1 mg/dL (1.6-2.6) Coagulation Test 10/19/24 05:19 Prothrombin Time 11.8 sec (9.3-11.8) Prothrombin Time INR 1.13 (0.9-1.15) Activated Partial Thromboplast Time 29.7 SEC (24.5-34.5) Lipid panel Test 10/19/24 05:19 Cholesterol Level 84 mg/dL (< 200) HDL Cholesterol 35 mg/dL (40-59) L Triglycerides Level 41 mg/dL (< 150) Cardiac Markers Test 10/18/24 23:15 B-Type Natriuretic Peptide 23.05 pg/mL (0-100) LFT Test 10/18/24 23:15 10/19/24 05:19 Alanine Aminotransferase (ALT) 39 U/L (7-40) 126 U/L (7-40) H Alkaline Phosphatase 81 U/L (46-116) 103 U/L (46-116) Aspartate Amino Transferase (AST) 32 U/L (<34) 114 U/L (<34) H Total Bilirubin 0.2 mg/dL (0.2-1.0) 0.3 mg/dL (0.2-1.0) HgA1c, TSH Test 10/19/24 05:19 Hemoglobin A1c 5.9 % A1C (<5.7) H Thyroid Stimulating Hormone (TSH) 0.40 uIU/mL (0.55-4.78) L Urinalysis Test 10/19/24 02:21 Urine Color Light-yellow (Yellow) Urine Clarity Clear (Clear) Urine pH 5.5 (5.0-9.0) Urine Specific [place] 1.009 (1.001-1.035) Urine Protein Negative (Negative) Urine Ketones Negative (Negative) Urine Blood Negative /uL (Negative) Urine Nitrite Negative (Negative) Urine Bilirubin Negative (Negative) Urine Urobilinogen Normal mg/dL (Negative) Urine Leukocyte Esterase Negative /uL (Negative) Urine RBC None seen /hpf (0 - 3) Urine Microscopic WBC 1 /HPF (0-3) Urine Squamous Epithelial Cells Few /hpf (<5) Urine Bacteria None seen /hpf (None Seen) Urine Mucus Few (None Seen) Urine Glucose Normal mg/dL (Normal) Assessment/Plan Assessment/Plan 64year-old male with a known history of hypertension, history of TIA/CVA presented to the hospital with abdominal cramping found to have 1. Abdominal pain 2. Bradycardia 3. TIA/history of CVA with the left-sided residual deficit 4. Hypertension 5. Dyslipidemia 6. Peripheral neuropathy 7. Bibasilar atelectasis 8. Lung nodule, outpatient follow up with a repeat CT chest in 3 months -continue dopamine. -2D echo cardiology consultation, pain meds as needed, plan of care discussed with the patient who understand verbalized the understanding and agreeable to plan. Plan discussed with: Patient, Other My Orders Orders - AMANDA TUTTLE MD Procedure Category Date Status Time Sodium Chloride 0.9% PHA 10/19/24 In Process 14:15 Basic Metabolic Panel LAB 10/19/24 Logged 17:00 Hydrocodone-Acet PHA 10/19/24 Logged 10/325mg Tab ([place] 15:15 Pantoprazole PHA 10/19/24 Logged (Protonix) 22:00 Insert Midline ORDERS 10/19/24 Transmitted 15:05 Date of Service: Oct 19, 2024 Billing Provider: AMANDA TUTTLE MD Common Visit Codes: [id number] INP/OBS CARE(HIGH) AMANDA TUTTLE MD Oct 19, 2024 16:45
[2024-10-19] MEDS: HYDROcodone-ACET 10/325MG TAB PO PRN (17:12)
[2024-10-19 17:24] LABS: Sodium 143 mmol/L (136-145)
[2024-10-19 17:25] LABS: Anion Gap 7 (5-15); Carbon Dioxide 23 mmol/L (20-31)
[2024-10-19 17:26] LABS: Calcium 9.9 mg/dL (8.7-10.4)
[2024-10-19 17:30] LABS: BUN/Creatinine Ratio 23.5 (10.0-20.0); Blood Urea Nitrogen 19 mg/dL (9-23)
[2024-10-19 17:31] LABS: Chloride 113 mmol/L (98-107); Glucose 124 mg/dL (74-106)
[2024-10-19] MEDS ORDERED: VANCOMYCIN PER PHARMACY 0 MG IV SCH (18:15)
[2024-10-19] MEDS: PIPERACILLIN-TAZOB 3.375GM 100 ML IV ONE (19:04)
[2024-10-19] MEDS: VANCOMYCIN 1.25GM/250ML 250 ML IV ONE (20:25)
[2024-10-19] MEDS: PANTOPRAZOLE 40 MG/10 ML VIAL INJ IV SCH (21:42)
[2024-10-19] MEDS: ATORVASTATIN 20 MG TAB PO SCH (21:42)
[2024-10-20] VITALS (98 sets, daily range): BP systolic 77–172; BP diastolic 43–90; PULSE 38–145; RESP 0–26; TEMP 97.8–98.6; O2SAT 91–100
[2024-10-20] MEDS: PIPERACILLIN-TAZOB 3.375GM 100 ML IV SCH (01:49)
[2024-10-20 06:02] LABS: Basophils # (auto) 0.1 10 ^3/uL (0-0.2); Basophils % (auto) 0.5 % (0.0-2.0); Eosinophils # (auto) 0.2 10 ^3/uL (0-0.8); Eosinophils % (auto) 1.2 % (0.0-7.0); Hematocrit 44.5 % (41.0-53.0); Hemoglobin 14.8 g/dL (13.5-17.5); Lymphocytes # (auto) 2.5 10 ^3/uL (0.4-5.4); Lymphocytes % (auto) 19.2 % (10.0-50.0); Mean Corpuscular Hemoglobin 30.6 pg (28.0-32.0); Mean Corpuscular Hgb Conc. 33.3 g/dL (32.0-36.0); Monocytes # (auto) 0.8 10 ^3/uL (0-1.3); Monocytes % (auto) 6.3 % (0.0-12.0); Neutrophils # (auto) 9.6 10 ^3/uL (1.6-8.6); Neutrophils % (auto) 72.8 % (37.0-80.0); Platelet Count (auto) 402 10^3/uL (140-450); Red Blood Cells 4.84 10^6/uL (4.5-5.90); Red Cell Distribution Width 14.8 % (11.8-14.3); White Blood Cell 13.2 10^3/uL (4.4-10.8)
[2024-10-20 06:23] LABS: Albumin 4.2 g/dL (3.2-4.8); Alkaline Phosphatase 102 U/L (46-116); Anion Gap 11 (5-15); BUN/Creatinine Ratio 10.5 (10.0-20.0); Bilirubin, Total 0.4 mg/dL (0.2-1.0); Blood Urea Nitrogen 9 mg/dL (9-23); Calcium 9.5 mg/dL (8.7-10.4); Potassium 3.9 mmol/L (3.5-5.1); Sodium 140 mmol/L (136-145); Total Protein 6.8 g/dL (5.7-8.2)
[2024-10-20 06:25] LABS: Alanine Aminotransferase 94 U/L (7-40); Aspartate Aminotransferase 53 U/L (<34); Carbon Dioxide 18 mmol/L (20-31); Chloride 111 mmol/L (98-107); Glucose 152 mg/dL (74-106)
[2024-10-20] MEDS: VANCOMYCIN 1.25GM/250ML 250 ML IV ONE (16:24)
--- NOTE | 2024-10-20 16:55 | DVHPN2 ---
Subjective This is 64-year-old male with a known history of hypertension, chronic pain syndrome, peripheral neuropathy, history of recent TIA/CVA presented to the hospital abdominal pain found to have hypotension and bradycardia. Patient's heart rate running between 40-60. Changes from previous H/P or p: No Changes Objective Vitals Vital Signs Date Time Temp Pulse Resp B/P (MAP) Pulse Ox O2 Delivery O2 Flow Rate FiO2 10/20/24 16:00 55 14 152/85 (107) 95 10/20/24 12:15 98.6 98.6 10/20/24 08:00 Room Air* 0 21 Intake/Output Intake and Output 10/20/24 07:00 Intake Total 3669.366 ml Output Total 4000 ml Balance -330.634 ml Intake Oral 1100 ml IV Total 2569.366 ml Output Urine Total 4000 ml Exam HEENT pupils are reactive Neck is supple CVS S1-S2 regular rate and rhythm Respiratory bilaterally clear GI positive bowel sounds soft nondistended nontender no guarding no rigidity 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 Medications Current Medications Medications Dose Ordered Sig/Neris Route Start Time Stop Time Status Last Admin Dose Admin Dopamine HCl/ Dextrose 250 ml @ 15.319 mls/ hr [id number] IV 10/19/24 01:30 10/20/24 08:26 24.51 MLS/HR Dabigatran 150 mg BID PO 10/19/24 10:00 10/20/24 10:07 150 MG Atorvastatin Calcium 80 mg HS PO 10/19/24 22:00 10/19/24 21:42 80 MG Clopidogrel Bisulfate 75 mg DAILY PO 10/19/24 10:00 10/20/24 09:42 75 MG Ondansetron HCl 4 mg Q4HP PRN IV 10/19/24 05:15 10/19/24 14:30 4 MG Acetaminophen 650 mg Q6HP PRN PO 10/19/24 05:15 Nitroglycerin 0.4 mg Q5MINP PRN SL 10/19/24 05:15 Morphine Sulfate 2 mg Q30M PRN IV 10/19/24 05:15 Diagnostic Test (Pha) 1 strip IQ4HR 10/19/24 12:00 10/20/24 16:24 1 STRIP Insulin Human Regular IQ4HR SC 10/19/24 12:00 10/20/24 16:23 2 UNITS Dextrose 50 ml UD PRN IV 10/19/24 11:00 Sodium Chloride 1,000 ml @ 125 mls/hr Q8H IV 10/19/24 14:15 10/20/24 01:49 125 MLS/HR Acetaminophen/ Hydrocodone Bitart 1 tab Q6HP PRN PO 10/19/24 15:15 10/20/24 15:00 1 TAB Pantoprazole Sodium 40 mg BID IV 10/19/24 22:00 10/20/24 09:42 40 MG Vancomycin HCl 0 ml @ 0 mls/hr UD IV 10/19/24 18:15 Piperacillin Sod/ Tazobactam Sod 100 ml @ 25 mls/hr Q8H IV 10/20/24 02:00 10/20/24 09:42 25 MLS/HR Laboratory Results Laboratory Tests 10/20/24 05:10 Chemistry Test 10/19/24 17:01 10/20/24 05:10 Calcium Level 9.9 mg/dL (8.7-10.4) 9.5 mg/dL (8.7-10.4) Albumin 4.2 g/dL (3.2-4.8) Magnesium Level 2.0 mg/dL (1.6-2.6) Phosphorus Level 3.0 mg/dL (2.4-5.1) Total Protein 6.8 g/dL (5.7-8.2) LFT Test 10/20/24 05:10 Alanine Aminotransferase (ALT) 94 U/L (7-40) H Alkaline Phosphatase 102 U/L (46-116) Aspartate Amino Transferase (AST) 53 U/L (<34) H Total Bilirubin 0.4 mg/dL (0.2-1.0) Urinalysis Test 10/19/24 02:21 Urine Color Light-yellow (Yellow) Urine Clarity Clear (Clear) Urine pH 5.5 (5.0-9.0) Urine Specific [place] 1.009 (1.001-1.035) Urine Protein Negative (Negative) Urine Ketones Negative (Negative) Urine Blood Negative /uL (Negative) Urine Nitrite Negative (Negative) Urine Bilirubin Negative (Negative) Urine Urobilinogen Normal mg/dL (Negative) Urine Leukocyte Esterase Negative /uL (Negative) Urine RBC None seen /hpf (0 - 3) Urine Microscopic WBC 1 /HPF (0-3) Urine Squamous Epithelial Cells Few /hpf (<5) Urine Bacteria None seen /hpf (None Seen) Urine Mucus Few (None Seen) Urine Glucose Normal mg/dL (Normal) Microbiology Microbiology Date/Time Source Procedure Growth Status 10/19/24 15:30 Nose MRSA Screen - Final Complete 10/19/24 15:20 Blood Blood Culture - Preliminary NO GROWTH AFTER 24 HOURS OF INCUBATION. Resulted 10/19/24 14:45 Voided Urine Urine Culture - Preliminary Resulted Assessment/Plan Assessment/Plan 64year-old male with a known history of hypertension, history of TIA/CVA presented to the hospital with abdominal cramping found to have 1. Abdominal pain 2. Bradycardia 3. TIA/history of CVA with the left-sided residual deficit 4. Hypertension 5. Dyslipidemia 6. Peripheral neuropathy 7. Bibasilar atelectasis 8. Lung nodule, outpatient follow up with a repeat CT chest in 3 months -continue dopamine. -2D echo cardiology consultation, pain meds as needed, plan of care discussed with the patient who understand verbalized the understanding and agreeable to plan. Plan discussed with: Patient My Orders Orders - AMANDA TUTTLE MD Procedure Category Date Status Time Communication Order ORDERS 10/19/24 Transmitted 17:01 Date of Service: Oct 20, 2024 Billing Provider: AMANDA TUTTLE MD Common Visit Codes: [id number] INP/OBS CARE(MOD) AMANDA TUTTLE MD Oct 20, 2024 16:55
--- NOTE | 2024-10-20 19:13 | ECG ---
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
[2024-10-20] MEDS: LIDOCAINE 1% (LOCAL ANESTH.) PF 5ml SDV ID ONE (19:21)
--- NOTE | 2024-10-20 20:17 | DVHINCON2 ---
Date of service: Oct 20, 2024 Referring Physician Jass Reason for Consultation Chest pain, Bradycardia History of Present Illness This is a 64 year old male with a PMH of Anxiety, COPD, CVA, High Lipids, HTN, Liver who presents to the ED on 10/18 with complaints of nonradiating, intermittent abdominal cramping, with associated chest pain, nausea, and dizziness. According to the patient on 10/18/2024 he started experiencing left abdominal cramps with radiation to the right flank along with lightheadedness and sensation. Patient notes he had similar symptoms 2-3 months ago when he was diagnosed with a CVA and that is why he decided to come to the hospital. Patient notes that the pain eventually extended to involve the chest area localizing it to the midepigastric region. Patient also endorses fatigue, shortness of breath on exertion and nausea. Serial troponins are negative. EKG showed minimal ST elevations in heart score was 5. Patient notes he had left heart catheterization in 2019, unsure of the results and whether or not stenting was done. CT ABD PEL showed mild left posterior basilar infiltrate and bibasilar atelectasis. Retained colonic stool. Chest x-ray showed NAD. CT head showed chronic sequelae of microvascular disease and multifocal right hemispheric chronic infarcts of the temporal and parietal lobes. Patient was admitted to the hospital. I am asked to consult on this patient. Family History: FH: cirrhosis G8 MOTHER (ANEURSYM) Prostate cancer G8 FATHER Allergies: Coded Allergies: NO KNOWN ALLERGIES (Unverified , 04/25/20) Home Meds Active Scripts Levofloxacin (Levaquin 750 mg) 750 Mg Tab, 1 TAB PO DAILY, #7 TAB Prov:SERGIO MÉNDEZ MD 07/27/19 Yeast (S. Boulardii)(S. Cerevi (Florastor) 250 Mg Cap, 250 MG PO DAILY, #10 CAP Prov:SERGIO MÉNDEZ MD 08/12/17 Cephalexin (Keflex) 500 Mg Cap, 1 CAP PO TID, #21 CAP Prov:SERGIO MÉNDEZ MD 08/12/17 Sulfamethoxazole W/Trimethopri (Smz-Tmp Ds) 1 Tab Tab, 1 TAB PO Q12HR, #14 TAB Prov:SERGIO MÉNDEZ MD 08/12/17 Reported Medications Levetiracetam (Levetiracetam) 750 Mg Tab, BID 08/05/17 Benazepril Hcl (Benazepril Hcl) 20 Mg Tab, 1 TAB PO BID, #60 04/18/14 Metoprolol Tartrate (Metoprolol Tartrate) 50 Mg Tab, 25 MG PO BID, #60 04/18/14 [Hydrocodon-Acetaminophn] 10-325 TAB No Conflict Check, 1 TAB PO Q8HP PRN for MODERATE PAIN, #90 04/18/14 Current Medications Current Medications Medications (Trade) Dose Ordered Sig/Neris Route PRN Reason Start Time Stop Time Status Last Admin Atorvastatin Calcium (Lipitor) 80 mg HS PO 10/19/24 22:00 10/19/24 21:42 Pantoprazole Sodium (Protonix) 40 mg BID IV 10/19/24 22:00 10/20/24 09:42 Piperacillin Sod/ Tazobactam Sod 100 ml @ 25 mls/hr Q8H IV 10/20/24 02:00 10/20/24 18:06 Vancomycin HCl 100 ml @ 100 mls/hr Q8H IV 10/21/24 00:00 Sodium Chloride (Saline Lock Ns) 10 ml QSHIFT@10,22 IV 10/20/24 22:00 UNV Review of Systems All Other Systems: Reviewed and Negative (Comprehensive systems review obtained and negative except for what is stated in the HPI.) Vital Signs Vital Signs Date Time Temp Pulse Resp B/P (MAP) Pulse Ox O2 Delivery O2 Flow Rate FiO2 10/20/24 18:00 54 12 121/69 (86) 96 10/20/24 12:15 98.6 98.6 10/20/24 08:00 Room Air* 0 21 Physical Exam GENERAL: Alert and oriented x 3. No acute distress. EYES: PERRL, EOMI. Anicteric. HENT: Moist mucous membranes. LUNGS: Clear to auscultation bilaterally. CARDIOVASCULAR: Regular rate and rhythm. ABDOMEN: Soft,diffuse tenderness. Surgical scar in mid-abdomen. EXTREMITIES: No edema. NEUROLOGIC: No focal neurological deficits. SKIN: Warm, dry. Labs/Diagnostic Data Labs Test 10/20/24 16:18 10/20/24 05:10 10/19/24 15:20 10/19/24 05:19 Range/Units POC Glucose 149 H 70-106 mg/dl White Blood Count 13.2 H 4.4-10.8 10^3/uL Red Blood Count 4.84 4.5-5.90 10^6/uL Hemoglobin 14.8 13.5-17.5 g/dL Hematocrit 44.5 41.0-53.0 % Mean Corpuscular Volume 92.0 80.0-100.0 fL Mean Corpuscular Hemoglobin 30.6 28.0-32.0 pg Mean Corpuscular Hemoglobin Concent 33.3 32.0-36.0 g/dL Red Cell Distribution Width 14.8 H 11.8-14.3 % Platelet Count 402 140-450 10^3/uL Mean Platelet Volume 8.7 6.9-10.8 fL Neutrophils (%) (Auto) 72.8 37.0-80.0 % Lymphocytes (%) (Auto) 19.2 10.0-50.0 % Monocytes (%) (Auto) 6.3 0.0-12.0 % Eosinophils (%) (Auto) 1.2 0.0-7.0 % Basophils (%) (Auto) 0.5 0.0-2.0 % Neutrophils # (Auto) 9.6 H 1.6-8.6 10 ^3/uL Lymphocytes # (Auto) 2.5 0.4-5.4 10 ^3/uL Monocytes # (Auto) 0.8 0-1.3 10 ^3/uL Eosinophils # (Auto) 0.2 0-0.8 10 ^3/uL Basophils # (Auto) 0.1 0-0.2 10 ^3/uL Nucleated Red Blood Cells 0.0 % Sodium Level 140 136-145 mmol/L Potassium Level 3.9 3.5-5.1 mmol/L Chloride Level 111 H 98-107 mmol/L Carbon Dioxide Level 18 L 20-31 mmol/L Anion Gap 11 5-15 Blood Urea Nitrogen 9 # 9-23 mg/dL Creatinine 0.86 0.700-1.30 mg/dL Glomerular Filtration Rate Calc 96 >90 mL/min BUN/Creatinine Ratio 10.5 10.0-20.0 Serum Glucose 152 H 74-106 mg/dL Calcium Level 9.5 8.7-10.4 mg/dL Phosphorus Level 3.0 2.4-5.1 mg/dL Magnesium Level 2.0 1.6-2.6 mg/dL Total Bilirubin 0.4 0.2-1.0 mg/dL Aspartate Amino Transferase (AST) 53 H <34 U/L Alanine Aminotransferase (ALT) 94 H 7-40 U/L Alkaline Phosphatase 102 46-116 U/L Total Protein 6.8 5.7-8.2 g/dL Albumin 4.2 3.2-4.8 g/dL Lactic Acid Level 1.2 0.4-2.0 mmol/L Prothrombin Time 11.8 9.3-11.8 sec Prothrombin Time INR 1.13 0.9-1.15 Activated Partial Thromboplast Time 29.7 24.5-34.5 SEC Hemoglobin A1c 5.9 H <5.7 % A1C Troponin I High Sensitivity 6 </=54 ng/L Triglycerides Level 41 < 150 mg/dL Cholesterol Level 84 < 200 mg/dL LDL Cholesterol 35 < 100 mg/dL HDL Cholesterol 35 L 40-59 mg/dL Thyroid Stimulating Hormone (TSH) 0.40 L 0.55-4.78 uIU/mL Test 10/19/24 02:21 10/18/24 23:15 Range/Units Urine Color Light-yellow Yellow Urine Clarity Clear Clear Urine pH 5.5 5.0-9.0 Urine Specific [place] 1.009 1.001-1.035 Urine Protein Negative Negative Urine Ketones Negative Negative Urine Blood Negative Negative /uL Urine Nitrite Negative Negative Urine Bilirubin Negative Negative Urine Urobilinogen Normal Negative mg/dL Urine Leukocyte Esterase Negative Negative /uL Urine RBC None seen 0 - 3 /hpf Urine Microscopic WBC 1 0-3 /HPF Urine Squamous Epithelial Cells Few <5 /hpf Urine Bacteria None seen None Seen /hpf Urine Mucus Few None Seen Urine Glucose Normal Normal mg/dL Urine Opiates Screen Pos NEGATIVE Urine Fentanyl Screen Neg NEGATIVE Urine Barbiturates Screen Neg NEGATIVE Urine Phencyclidine Screen Neg NEGATIVE Urine Amphetamines Screen Neg NEGATIVE Urine Benzodiazepines Screen Neg NEGATIVE Urine Cocaine Screen Neg NEGATIVE Urine Cannabinoids Screen Pos NEGATIVE B-Type Natriuretic Peptide 23.05 0-100 pg/mL Microbiology Date/Time Source Procedure Growth Status 10/19/24 15:30 Nose MRSA Screen - Final Complete 10/19/24 15:20 Blood Blood Culture - Preliminary NO GROWTH AFTER 24 HOURS OF INCUBATION. Resulted 10/19/24 14:45 Voided Urine Urine Culture - Preliminary Resulted Assessment Asymptomatic bradycardia. Intractable abdominal pain. Essential hypertension. Hepatitis-C, treated COPD Pulmonary hypertension. Moderate tricuspid regurgitation. History of recurrent CVAs. Dyslipidemia. Peripheral neuropathy. Bibasilar atelectasis. Lung nodule. Plan/Recommendation I agree with your ongoing assessment and care of plan. Echocardiogram. Morphine and [place] for pain management. Lipitor, Plavix. Dopamine drip. Nitro SL. GI prophylactics. IV antibiotics as ordered. Additional plan as per the hospital course. Critical care time of 45 minutes provided to include time spent evaluation of patient at bedside, when appropriate patient/family education for diagnosis, treatment plan, review of pertinent medical information and discussion of care with specialty providers and PCP. Plan discussed with: Patient MIK GALLEGO MD Oct 20, 2024 19:31
[2024-10-20] MEDS: SODIUM CHLOR 0.9% PF (SALINE LOCK) 10ML VIAL/SYR IV SCH (22:02)
[2024-10-20] MEDS: VANCOMYCIN 750mg/150ml 150 ML IV SCH (23:59)
[2024-10-21] VITALS (67 sets, daily range): BP systolic 88–167; BP diastolic 55–83; PULSE 48–107; RESP 10–24; TEMP 98.4–98.6; O2SAT 92–98
[2024-10-21 06:48] LABS: Anion Gap 11 (5-15); Sodium 142 mmol/L (136-145)
[2024-10-21 06:49] LABS: Calcium 9.4 mg/dL (8.7-10.4)
[2024-10-21 06:54] LABS: BUN/Creatinine Ratio 8.4 (10.0-20.0)
[2024-10-21 06:57] LABS: Carbon Dioxide 20 mmol/L (20-31); Chloride 111 mmol/L (98-107)
[2024-10-21 06:58] LABS: Blood Urea Nitrogen 7 mg/dL (9-23); Glucose 141 mg/dL (74-106)
[2024-10-21 07:24] LABS: Basophils # (auto) 0.1 10 ^3/uL (0-0.2); Basophils % (auto) 0.9 % (0.0-2.0); Eosinophils # (auto) 0.3 10 ^3/uL (0-0.8); Eosinophils % (auto) 2.5 % (0.0-7.0); Hematocrit 42.8 % (41.0-53.0); Hemoglobin 14.6 g/dL (13.5-17.5); Lymphocytes # (auto) 2.6 10 ^3/uL (0.4-5.4); Lymphocytes % (auto) 20.7 % (10.0-50.0); Mean Corpuscular Hemoglobin 31.1 pg (28.0-32.0); Mean Corpuscular Volume 91.5 fL (80.0-100.0); Monocytes # (auto) 0.9 10 ^3/uL (0-1.3); Monocytes % (auto) 7.5 % (0.0-12.0); Neutrophils # (auto) 8.4 10 ^3/uL (1.6-8.6); Neutrophils % (auto) 68.4 % (37.0-80.0); Platelet Count (auto) 362 10^3/uL (140-450); Red Blood Cells 4.68 10^6/uL (4.5-5.90); Red Cell Distribution Width 14.4 % (11.8-14.3); White Blood Cell 12.3 10^3/uL (4.4-10.8)
[2024-10-21] MEDS: ACETAMINOPHEN 325 MG TAB PO PRN (08:53)
--- NOTE | 2024-10-21 17:48 | DVHDS2 ---
Discharge Summary Date of Admission Oct 19, 2024 at 05:07 Date of Discharge: Oct 21, 2024 Labs/Diagnostic Data: Laboratory Results Test 10/21/24 16:35 10/21/24 14:58 10/21/24 05:43 10/20/24 05:10 POC Glucose 76 mg/dl (70-106) Creatinine 0.85 mg/dL (0.700-1.30) Glomerular Filtration Rate Calc 96 mL/min (>90) Vancomycin Level Trough 14.6 ug/mL (5-10) White Blood Count 12.3 10^3/uL (4.4-10.8) Red Blood Count 4.68 10^6/uL (4.5-5.90) Hemoglobin 14.6 g/dL (13.5-17.5) Hematocrit 42.8 % (41.0-53.0) Mean Corpuscular Volume 91.5 fL (80.0-100.0) Mean Corpuscular Hemoglobin 31.1 pg (28.0-32.0) Mean Corpuscular Hemoglobin Concent 34.0 g/dL (32.0-36.0) Red Cell Distribution Width 14.4 % (11.8-14.3) Platelet Count 362 10^3/uL (140-450) Mean Platelet Volume 9.1 fL (6.9-10.8) Neutrophils (%) (Auto) 68.4 % (37.0-80.0) Lymphocytes (%) (Auto) 20.7 % (10.0-50.0) Monocytes (%) (Auto) 7.5 % (0.0-12.0) Eosinophils (%) (Auto) 2.5 % (0.0-7.0) Basophils (%) (Auto) 0.9 % (0.0-2.0) Neutrophils # (Auto) 8.4 10 ^3/uL (1.6-8.6) Lymphocytes # (Auto) 2.6 10 ^3/uL (0.4-5.4) Monocytes # (Auto) 0.9 10 ^3/uL (0-1.3) Eosinophils # (Auto) 0.3 10 ^3/uL (0-0.8) Basophils # (Auto) 0.1 10 ^3/uL (0-0.2) Nucleated Red Blood Cells 0.0 % Sodium Level 142 mmol/L (136-145) Potassium Level 4.0 mmol/L (3.5-5.1) Chloride Level 111 mmol/L (98-107) Carbon Dioxide Level 20 mmol/L (20-31) Anion Gap 11 (5-15) Blood Urea Nitrogen 7 mg/dL (9-23) BUN/Creatinine Ratio 8.4 (10.0-20.0) Serum Glucose 141 mg/dL (74-106) Calcium Level 9.4 mg/dL (8.7-10.4) Phosphorus Level 3.0 mg/dL (2.4-5.1) Magnesium Level 2.0 mg/dL (1.6-2.6) Total Bilirubin 0.4 mg/dL (0.2-1.0) Aspartate Amino Transferase (AST) 53 U/L (<34) Alanine Aminotransferase (ALT) 94 U/L (7-40) Alkaline Phosphatase 102 U/L (46-116) Total Protein 6.8 g/dL (5.7-8.2) Albumin 4.2 g/dL (3.2-4.8) Test 10/19/24 15:20 10/19/24 05:19 10/19/24 02:21 10/18/24 23:15 Lactic Acid Level 1.2 mmol/L (0.4-2.0) Prothrombin Time 11.8 sec (9.3-11.8) Prothrombin Time INR 1.13 (0.9-1.15) Activated Partial Thromboplast Time 29.7 SEC (24.5-34.5) Hemoglobin A1c 5.9 % A1C (<5.7) Troponin I High Sensitivity 6 ng/L (</=54) Triglycerides Level 41 mg/dL (< 150) Cholesterol Level 84 mg/dL (< 200) LDL Cholesterol 35 mg/dL (< 100) HDL Cholesterol 35 mg/dL (40-59) Thyroid Stimulating Hormone (TSH) 0.40 uIU/mL (0.55-4.78) Urine Color Light-yellow (Yellow) Urine Clarity Clear (Clear) Urine pH 5.5 (5.0-9.0) Urine Specific [place] 1.009 (1.001-1.035) Urine Protein Negative (Negative) Urine Ketones Negative (Negative) Urine Blood Negative /uL (Negative) Urine Nitrite Negative (Negative) Urine Bilirubin Negative (Negative) Urine Urobilinogen Normal mg/dL (Negative) Urine Leukocyte Esterase Negative /uL (Negative) Urine RBC None seen /hpf (0 - 3) Urine Microscopic WBC 1 /HPF (0-3) Urine Squamous Epithelial Cells Few /hpf (<5) Urine Bacteria None seen /hpf (None Seen) Urine Mucus Few (None Seen) Urine Glucose Normal mg/dL (Normal) Urine Opiates Screen Pos (NEGATIVE) Urine Fentanyl Screen Neg (NEGATIVE) Urine Barbiturates Screen Neg (NEGATIVE) Urine Phencyclidine Screen Neg (NEGATIVE) Urine Amphetamines Screen Neg (NEGATIVE) Urine Benzodiazepines Screen Neg (NEGATIVE) Urine Cocaine Screen Neg (NEGATIVE) Urine Cannabinoids Screen Pos (NEGATIVE) B-Type Natriuretic Peptide 23.05 pg/mL (0-100) Other Laboratory Tests 10/21/24 14:58 10/21/24 05:43 Brief Hx & Hospital Course: 64year-old male with a known history of hypertension, history of TIA/CVA presented to the hospital with abdominal cramping found to have bradycardia. Patient does use beta francis at home in the past which was stopped. Patient does have known history of TIA and CVA with left-sided residual deficit. Patient was seen by Cardiology. Patient was kept in ICU initially on dopamine drip for bradycardia. Patient's bradycardia has been resolved. Patient does have known history of paroxysmal AFib currently on statin as well as Pradaxa at home. Patient does found to have lung nodules which will be follow up as an outpatient with the PCP as well as Pulmonary. Patient is currently requesting to go home and he is stable to be discharged. Condition at Discharge: Stable Final Diagnosis/Problems List 64year-old male with a known history of hypertension, history of TIA/CVA presented to the hospital with abdominal cramping found to have 1. Abdominal pain 2. Bradycardia 3. TIA/history of CVA with the left-sided residual deficit 4. Hypertension 5. Dyslipidemia 6. Peripheral neuropathy 7. Bibasilar atelectasis 8. Lung nodule, outpatient follow up with a repeat CT chest in 3 months 9. Paroxysmal AFib currently on Pradaxa Discharge Disposition: Home SNF Discharge Will this Physician continue t: No Discharge Instruct/Medications Diet: Cardiac 2g Na,low cholest Activity: No Restrictions, As Tolerated Follow Up/Referral: Follow up with the PCP in 1-2 weeks Follow up with the Pulmonary in two weeks to follow up on the pulmonary nodule Medications: Resume home medication including Pradaxa and atorvastatin. Discharge Statement: "Patient was advised to return to the ER or call 911 if any headaches, dizziness, shortness of breath, chest pain, abdominal pain, bleeding, fevers, or worsening of medical condition. Patient was counseled about treatment plan, medications, possible side effects, patientverbalized understanding. All questions were answered to the best of my ability. This discharge took greater then 30 minutes in planning, reviewing documentation, counseling the patient, and discussing with other team members." ASSESSMENT ASSESSMENT Assessment 64year-old male with a known history of hypertension, history of TIA/CVA presented to the hospital with abdominal cramping found to have 1. Abdominal pain 2. Bradycardia 3. TIA/history of CVA with the left-sided residual deficit 4. Hypertension 5. Dyslipidemia 6. Peripheral neuropathy 7. Bibasilar atelectasis 8. Lung nodule, outpatient follow up with a repeat CT chest in 3 months 9. Paroxysmal AFib currently on Pradaxa Date of Service: Oct 21, 2024 Billing Provider: AMANDA TUTTLE MD Common Visit Codes: 82342-JPS/OBS DISCH DAY >30min AMANDA TUTTLE MD Oct 21, 2024 17:48
--- NOTE | 2024-10-21 23:14 | DVHPN2 ---
Progress Note - Dictate Date Seen: Oct 21, 2024 Medical Necessity Reason Pt with a Central, PICC or Fol: No Subjective Patient was seen and evaluated in follow up in the ICU. Patient complains of generalized pain. Patient is hypotensive this afternoon. WBC 12.3. Cartoid Doppler shows greater than 70% stenosis of the proximal right internal carotid artery due to atherosclerotic plaque. No hemodynamically significant stenosis noted in the left carotid system. vital signs Vital Sign Date Time Temp Pulse Resp B/P (MAP) Pulse Ox O2 Delivery O2 Flow Rate FiO2 10/21/24 12:45 70 18 90/62 (71) 92 10/21/24 12:30 98.4 98.4 10/21/24 08:00 Room Air* 0 21 Total Intake and Output 10/20/24 10/20/24 10/21/24 15:00 23:00 07:00 Intake Total 1196.08 ml 1927.698 ml 1644.316 ml Output Total 1700 ml 2450 ml Balance 1196.08 ml 227.698 ml -805.684 ml medications Current Medications Medications Dose Ordered Sig/Neris Route Start Time Stop Time Status Last Admin Dose Admin Dopamine HCl/ Dextrose 250 ml @ 15.319 mls/ hr [id number] IV 10/19/24 01:30 10/21/24 07:09 24.51 MLS/HR Dabigatran 150 mg BID PO 10/19/24 10:00 10/21/24 08:46 150 MG Atorvastatin Calcium 80 mg HS PO 10/19/24 22:00 10/20/24 22:03 80 MG Clopidogrel Bisulfate 75 mg DAILY PO 10/19/24 10:00 10/21/24 08:46 75 MG Ondansetron HCl 4 mg Q4HP PRN IV 10/19/24 05:15 10/20/24 21:26 4 MG Acetaminophen 650 mg Q6HP PRN PO 10/19/24 05:15 10/21/24 08:53 650 MG Nitroglycerin 0.4 mg Q5MINP PRN SL 10/19/24 05:15 Morphine Sulfate 2 mg Q30M PRN IV 10/19/24 05:15 Diagnostic Test (Pha) 1 strip IQ4HR 10/19/24 12:00 10/21/24 12:08 1 STRIP Insulin Human Regular IQ4HR SC 10/19/24 12:00 10/21/24 12:13 2 UNITS Dextrose 50 ml UD PRN IV 10/19/24 11:00 Sodium Chloride 1,000 ml @ 125 mls/hr Q8H IV 10/19/24 14:15 10/20/24 23:59 125 MLS/HR Acetaminophen/ Hydrocodone Bitart 1 tab Q6HP PRN PO 10/19/24 15:15 10/21/24 12:08 1 TAB Pantoprazole Sodium 40 mg BID IV 10/19/24 22:00 10/21/24 08:46 40 MG Vancomycin HCl 0 ml @ 0 mls/hr UD IV 10/19/24 18:15 Piperacillin Sod/ Tazobactam Sod 100 ml @ 25 mls/hr Q8H IV 10/20/24 02:00 10/21/24 08:46 25 MLS/HR Vancomycin HCl 150 ml @ 150 mls/hr Q8H IV 10/21/24 00:00 10/21/24 08:42 150 MLS/HR Sodium Chloride 10 ml QSHIFT@10,22 IV 10/20/24 22:00 10/21/24 08:46 10 ML objective GENERAL: Alert and oriented x 3. No acute distress. EYES: PERRL, EOMI. Anicteric. HENT: Moist mucous membranes. LUNGS: Clear to auscultation bilaterally. CARDIOVASCULAR: Regular rate and rhythm. ABDOMEN: Soft,diffuse tenderness. Surgical scar in mid-abdomen. EXTREMITIES: No edema. NEUROLOGIC: No focal neurological deficits. SKIN: Warm, dry. laboratory and microbiology Laboratory Tests 10/21/24 05:43 Test 10/21/24 05:43 Range/Units Serum Glucose 141 H 74-106 mg/dL Problem List Asymptomatic bradycardia. Intractable abdominal pain. Essential hypertension. Hepatitis-C, treated COPD Pulmonary hypertension. Moderate tricuspid regurgitation. History of recurrent CVAs. Dyslipidemia. Peripheral neuropathy. Bibasilar atelectasis. Lung nodule. Assessment/Plan Continued all current supportive medical care. Echocardiogram. Morphine and [place] for pain management. Lipitor, Plavix. Dopamine drip. Nitro SL. GI prophylactics. IV antibiotics as ordered. Additional plan as per the hospital course. Critical care time of 45 minutes provided to include time spent evaluation of patient at bedside, when appropriate patient/family education for diagnosis, treatment plan, review of pertinent medical information and discussion of care with specialty providers and PCP. Plan discussed with: Patient MIK GALLEGO MD Oct 21, 2024 15:16
== END 2024-10-21 19:20 | disposition home or self-care (01) | DRG 871 ==
LOC: EDBD 22:56 → ER 22:56 → OVERFLOW 10-19 05:07 → UNDODEPER 10-21 22:05
PROVIDERS: ADMIT Internal Medicine; ATTEND Internal Medicine
PROC: 05H933Z Insertion of Infusion Device into Right Brachial Vein, Percutaneous Approach (ICD-10-PCS; 2024-10-19)
PROC: B54MZZA Ultrasonography of Right Upper Extremity Veins, Guidance (ICD-10-PCS; 2024-10-19)
PROC: 02HV33Z Insertion of Infusion Device into Superior Vena Cava, Percutaneous Approach (ICD-10-PCS; principal; 2024-10-20)
PROC: B548ZZA Ultrasonography of Superior Vena Cava, Guidance (ICD-10-PCS; 2024-10-20)
DX: A41.50 Gram-negative sepsis, unspecified (principal); J15.69 Pneumonia due to other Gram-negative bacteria; R57.0 Cardiogenic shock; J15.9 Unspecified bacterial pneumonia; J98.11 Atelectasis; G62.9 Polyneuropathy, unspecified; E78.5 Hyperlipidemia, unspecified; I10 Essential (primary) hypertension; I07.1 Rheumatic tricuspid insufficiency; I48.0 Paroxysmal atrial fibrillation; I27.20 Pulmonary hypertension, unspecified; B19.20 Unspecified viral hepatitis C without hepatic coma; F41.9 Anxiety disorder, unspecified; R91.1 Solitary pulmonary nodule; F17.200 Nicotine dependence, unspecified, uncomplicated; G89.4 Chronic pain syndrome; J44.9 Chronic obstructive pulmonary disease, unspecified; Z80.42 Family history of malignant neoplasm of prostate; Z90.81 Acquired absence of spleen; Z90.49 Acquired absence of other specified parts of digestive tract; Z86.73 Personal history of transient ischemic attack (TIA), and cerebral infarction without residual deficits; Z79.899 Other long term (current) drug therapy
CPT/HCPCS: 36415; 36569; 70450; 71045; 71250; 74176; 76937; 80048; 80053; 80061; 80202; 80307; 81001; 82565; 82962; 83036; 83605; 83735; 83880; 84100; 84443; 84484; 85025; 85610; 85730; 87040; 87081; 87086; 93005; 93306; 93886; 96365; 96372; 96375; 99291; G0378; J0131; J1815; J1885; J2405; J2470; J2543